=== PATIENT | male | born 1970 | race African-American/Black ===

== ENCOUNTER 2017-12-08 11:00 | Emergency (ER) | payer MEDICARE, MEDICAID, SELFPAY ==
[2017-12-08] VITALS (8 sets, daily range): BP systolic 117–151; BP diastolic 77–95; PULSE 65–89; RESP 14–18; TEMP 36.5; O2SAT 96–97; BMI 23.5
--- NOTE | 2017-12-08 11:16 | ED.DCSUM_ITS ---
- ER Visit Summary Date of Service: 12/08/17 Chief Complaint: I do not know why I am here History of Present Illness: The patient is a 47 M who presents for an unknown reason. He does not know what medications he takes. There is a caregiver with him whose not exactly sure why the patient is here either. He states that he needs his medications but cannot tell me what medications he is taking. He states that his primary care doctor is not authorized to write him his medications. States they called the [facility] and was told to come to the emergency room because they cannot see him until next week. So at this point is unclear why he is here what medications he needs are exactly what were supposed to be due other than the fact that he is here. I attempted to use [employer]. However I can only basically see a few notes and none of them are psychiatric in nature. I can see from his primary care physician notes that he has recently moved to [place]. 3 months ago was hospitalized at [facility]. Apparently he was receiving his medications off of prescriptions that were written there and some from his primary care doctor here in [place]. He was supposed to be seen next week by psychiatry at [facility]. Caregiver states he has not had his Haldol shot for over a month. He also reports being out of his clozapine. Reportedly the patient has had violence in the past due to paranoid schizophrenia. It is reported to me that [place] here in town where he is living is concerned that he is becoming agitated and is worried he is going to become violent. Physical Examination: Afebrile vital signs are stable Gen: Well-nourished well-developed Head: Normocephalic atraumatic Eyes: Perrl EOMI ENT: TMs clear no rhinorrhea moist mucous membranes Neck: Supple no lymphadenopathy no JVD nontender CVS: Regular rate rhythm no murmurs normal S1-S2 Respiratory: No distress clear to auscultation bilaterally chest nontender Abdomen: Soft nontender nondistended normal bowel sounds no masses Back: Nontender Extremity: Nontender no edema Skin: Normal color no rash Neuro: alert orientated ?3 CN II-XII intact normal strength sensation reflexes gait cerebellar Psych: Patient has nonlinear thinking. He is hyper alert. He appears internally stimulated. Test Results: Valproic acid level was 12. Alcohol negative. As directed 8 was positive for methamphetamine/MDMA. CMP normal. CBC normal. Urinalysis normal. Emergency Department Course and Treatment: Patient received a dose of Haldol here in the department. He is cleared for crisis. The patient has been up wandering the room he is directable though still with nonlinear thinking. Crisis is here to help evaluate the patient to make an appropriate disposition Impression: 1. Acute decompensated paranoid schizophrenia This note was generated with [employer] dictation software. It may contain incorrect words, spelling, and punctuation that were not noted in review of the chart prior to signing ED Disposition - Plan for ED Patient: Chief Complaint: Med Refill Referrals: Catrachito Arriaga MD [Primary Care Provider] -
--- NOTE | 2017-12-08 11:36 | NURSING ---
CALLED [facility] FOR A MED LIST. [phone]
[2017-12-08] MEDS: Haloperidol Lactate 5 MG/ML Vial 10 MG IM (11:41)
[2017-12-08 11:55] LABS: Absolute Lymphocyte Count 1.96 X10^3/ul (0.83-4.51); Absolute Neutrophil Count 5.5 X10^3/uL (2.0-7.7); Basophil# 0.01 X10^3/uL; Basophil% 0.1 % (0-1); Eosinophil# 0.08 X10^3/uL; Hematocrit 43.7 % (40-54); Hemoglobin 14.8 g/dl (13.0-16.5); Lymphocyte # 1.96 X10^3/ul (4.0); Lymphocyte % 24.1 % (19-41); Mean Corp Hgb Conc 33.9 g/gl (32-36); Mean Corpuscular Hgb 31.4 pg (27.0-32.0); Mean Corpuscular Volume 92.8 fL (80-94); Mean Platelet Vol. 12.1 fl (6.2-12.0); Monocyte# 0.61 X10^3/uL; Monocyte% 7.5 % (0-10); Neutrophil # 5.45 X10^3/uL (2.7-7.7); Neutrophil % 67.2 % (47-70); POSITIVE COUNT NO; POSITIVE DIFFERENTIAL NO; POSITIVE MORPHOLOGY NO; Platelet Count 190 K/mm3 (150-450); RBC Distribution Width CV 14.1 % (11.6-14.6); RBC Distribution Width SD 48.1 fl (35.1-43.9); Red Blood Count 4.71 M/mm3 (4.6-6.2); White Blood Count 8.1 K/mm3 (4.4-11.0)
--- NOTE | 2017-12-08 12:04 | NURSING ---
CALLED [facility] TO LEAVE A MESSAGE THAT WE HAD NOT RECEIVED A MED LIST. THEY ARE CLOSED FOR LUNCH AT NOON
[2017-12-08 12:13] LABS: ALB/GLOB Ratio 0.9 RATIO (0.9-2.4); AST(SGOT) 23 U/L (15-37); Alanine Aminotransfer ALT/SGPT 20 U/L (16-61); Alkaline Phosphatase 51 U/L (45-117); Anion Gap 8 (5-15); BUN 16 mg/dL (7-18); BUN/Creat Ratio 14.4 RATIO (10-20); Calcium,Total 8.9 mg/dL (8.5-10.1); Chloride 108 mmol/L (98-107); Creatinine, Serum 1.11 mg/dL (0.70-1.30); EST Glomerular Filtration Rate 76 mL/min (>60); Est Glom Filt Rate - Afr Amer 92 mL/min (>60); Estimated Creatinine Clearance 97.71 ml/min; Globulin 4.5 g/dL (2.2-4.2); Glucose 105 mg/dL (74-106); Protein, Total 8.5 g/dL (6.4-8.2); Sodium Level 142 mmol/L (136-145)
[2017-12-08 12:58] LABS: Alcohol, Blood (Medical)-Serum < 3.0 mg/dL
[2017-12-08 13:07] LABS: Red Blood Cells-Urine 0 SEEN /hpf (0-5); Squamous Epithelial Cells - UA 0 SEEN /hpf (0-5)
[2017-12-08 13:23] LABS: Color, Urine Yellow (Yellow); Glucose, Dipstick Normal (Normal); Ketone-Dipstick 50 mg/dl (Negative); Leukocyte Esterase-Dipstick 25 /ul (Negative); Nitrite-Dipstick Negative (Negative); Occult Blood-Urine 10 /ul (Negative); Protein-Dipstick 30 mg/dl (Negative); Specific Gravity, Urine 1.025 (1.002-1.030); Urine Clarity Clear (Clear); Urine Urobilinogen 4 mg/dl (Normal)
[2017-12-08 13:24] LABS: Urine Bilirubin Dipstick 1 mg/dL (Negative)
[2017-12-08 13:28] LABS: Bacteria RARE /hpf (None Seen); Mucous, Urine 2+ /hpf (<or=2+); White Blood Cells 0-5 SEEN /hpf (0-5)
[2017-12-08 13:42] LABS: Amphetamine Urine VISTA NEGATIVE (<1000 ng/mL); Barbiturate Urine VISTA NEGATIVE (< 200 ng/mL); Benzodiazepine Urine VISTA NEGATIVE (< 200 ng/mL); Cocaine Urine VISTA NEGATIVE (< 300 ng/mL); Ecstacy Urine VISTA POSITIVE (< 500 ng/mL); Methadone Urine VISTA NEGATIVE (< 300 ng/mL); PCP Urine VISTA NEGATIVE (< 25 ng/mL); THC Urine VISTA NEGATIVE (< 50 ng/mL); Vista UDS pH Range 5
[2017-12-08 13:48] LABS: Valproic Acid (Depakene) Level 12 ug/mL (50-100)
--- NOTE | 2017-12-08 14:24 | NURSING ---
EWELINA, [facility], AWARE
--- NOTE | 2017-12-08 15:53 | NURSING ---
FACILITY STAFF THAT WAS PRESENT WITH THE PATIENT RETURN TO THE FACILITY. PATIENT WAS TOLD BY STAFF THAT HE WOULD RETURN. FACILITY CALLED BACK INTO THE DEPARTMENT TO GET AN UPDATE ABOUT THE PATIENT. [facility] WAS INFROMED FOR PATIENT'S CURRENT STATUS AND ASKED WHY FACILITY STAFF MEMBER HAD NOT RETURNED. SHE STATED THE STAFF WAS OFF DUTY. PT WAS INFORMED THAT FACILITY STAFF THAT PROMISED TO RETURN WOULD NOT BE BACK AND THAT WE WOULD HAVE TO CALL [facility] FOR TRANSPORT BACK TO FACILITY.
[2017-12-08] MEDS: Haloperidol Lactate 5 MG/ML Vial 20 MG IM (17:01)
[2017-12-08] MEDS: DiphenhydrAMINE 50 MG/ML Syringe 25 MG IM (17:01)
--- NOTE | 2017-12-08 21:07 | NURSING ---
ACCEPTING AT [facility] BUT NOT ALLOWED TO CALL REPORT UNTIL 6:30AM AND CANNOT SET UP TRANSPORT UNTIL AFTER 8:30AM
[2017-12-09] VITALS (13 sets, daily range): BP systolic 128–135; BP diastolic 90–98; PULSE 70–78; RESP 12–18; TEMP 36.5; O2SAT 97–100
--- NOTE | 2017-12-09 09:54 | ED.RN ---
[facility] WILL BE COMING FOR PATIENT BETWEEN 4:30-5:00
== END 2017-12-09 17:55 ==
PROVIDERS: Emergency Provider Emergency Medicine; Family Provider Family Medicine
DX: F20.0 Paranoid schizophrenia (principal); I10 Essential (primary) hypertension; Z72.0 Tobacco use; Z79.899 Other long term (current) drug therapy
CPT/HCPCS: 36415; 80053; 80164; 80307; 80320; 81001; 85025; 96372; 99284; G0480

== ENCOUNTER 2018-03-26 15:21 | Emergency (ER) | payer MEDICARE, MEDICAID, SELFPAY ==
[2018-03-26 15:24] VITALS: BP 139/90; PULSE 89; RESP 16; TEMP 36.7; O2SAT 98; BMI 24.3
--- NOTE | 2018-03-26 15:52 | ED.VISSUMM ---
- ER Visit Summary Date of Service: 03/26/18 Chief Complaint: Wants psychiatric medication changed History of Present Illness: The patient is a 47 M presenting stating that he does not like the way his psychiatric medications make him feel. He states they make him feel high. He states he feels suicidal. He is currently staying in a facility. He has been there for the past month. He is from [facility]. He has not been able to contact his psychiatrist. He believes he is god and the devil. He is taking clozapine, Depakote, trazodone. Physical Examination: Vitals are stable. Patient is afebrile. Alert no acute distress. HEENT exam is unremarkable. Neck is supple. Lungs are clear and equal bilaterally. Heart is regular rate and rhythm. Abdomen is soft nontender nondistended. Extremities are unremarkable. Skin is warm and dry. No focal neurologic deficit. Agitated,suicidal ideation Remainder of exam is unremarkable. Emergency Department Course and Treatment: CBC, chemistries unremarkable. Tox and alcohol are negative. Depakote level is 74. Discussed with the counseling center for evaluation. Disposition: Per counseling center Impression: Suicidal ideation, history of schizophrenia This note was generated with [employer] dictation software. It may contain incorrect words, spelling, and punctuation that were not noted in review of the chart prior to signing ED Disposition - Plan for ED Patient: Chief Complaint: Mental Status Change Referrals: Nicole Lara,Out of [Primary Care Provider] -
--- NOTE | 2018-03-26 16:14 | ED.RN ---
after triage pt noted to physician that he changed his mind and is feeling suicidal. Suicide precautions initiated, sitter in place.
[2018-03-26 16:32] LABS: Amphetamine Urine VISTA NEGATIVE (<1000 ng/mL); Barbiturate Urine VISTA NEGATIVE (< 200 ng/mL); Benzodiazepine Urine VISTA NEGATIVE (< 200 ng/mL); Cocaine Urine VISTA NEGATIVE (< 300 ng/mL); Ecstacy Urine VISTA NEGATIVE (< 500 ng/mL); Methadone Urine VISTA NEGATIVE (< 300 ng/mL); PCP Urine VISTA NEGATIVE (< 25 ng/mL); THC Urine VISTA NEGATIVE (< 50 ng/mL); Vista UDS pH Range 5
[2018-03-26 16:32] LABS: Absolute Lymphocyte Count 1.57 X10^3/ul (0.83-4.51); Basophil# 0.01 X10^3/uL; Basophil% 0.2 % (0-1); Eosinophil# 0.14 X10^3/uL; Eosinophils% 2.7 % (0-5); Hematocrit 43.8 % (40-54); Hemoglobin 14.6 g/dl (13.0-16.5); Lymphocyte # 1.57 X10^3/ul (4.0); Lymphocyte % 30.6 % (19-41); Mean Corp Hgb Conc 33.3 g/gl (32-36); Mean Corpuscular Hgb 31.4 pg (27.0-32.0); Mean Corpuscular Volume 94.2 fL (80-94); Mean Platelet Vol. 12.5 fl (6.2-12.0); Monocyte% 7.8 % (0-10); Neutrophil % 58.5 % (47-70); Platelet Count 160 K/mm3 (150-450); RBC Distribution Width CV 13.6 % (11.6-14.6); RBC Distribution Width SD 46.6 fl (35.1-43.9); Red Blood Count 4.65 M/mm3 (4.6-6.2); White Blood Count 5.1 K/mm3 (4.4-11.0)
[2018-03-26 16:33] LABS: POSITIVE COUNT NO; POSITIVE DIFFERENTIAL NO; POSITIVE MORPHOLOGY NO
[2018-03-26 16:36] LABS: Anion Gap 5 (5-15); BUN 16 mg/dL (7-18); BUN/Creat Ratio 17.2 RATIO (10-20); Calcium,Total 8.2 mg/dL (8.5-10.1); Chloride 108 mmol/L (98-107); Creatinine, Serum 0.93 mg/dL (0.70-1.30); EST Glomerular Filtration Rate 93 mL/min (>60); Est Glom Filt Rate - Afr Amer 113 mL/min (>60); Estimated Creatinine Clearance 116.62 ml/min; Glucose 97 mg/dL (74-106); Potassium 3.8 mmol/L (3.5-5.1); Sodium Level 142 mmol/L (136-145)
[2018-03-26 17:13] LABS: Alcohol, Blood (Medical)-Serum < 3.0 mg/dL
[2018-03-26 17:22] LABS: Valproic Acid (Depakene) Level 74 ug/mL (50-100)
--- NOTE | 2018-03-26 17:41 | NURSING ---
[facility]ED [facility]. MEDICALLY CLEARED
--- NOTE | 2018-03-26 17:50 | NURSING ---
[facility]. WILL BE HERE IN 45 MIN
[2018-03-26 19:00] VITALS: RESP 18
--- NOTE | 2018-03-26 19:13 | ED.RN ---
[facility] AT [facility]
[2018-03-26 20:00] VITALS: BP 126/111; PULSE 83; RESP 18; O2SAT 98
[2018-03-26 21:00] VITALS: RESP 16
[2018-03-26] MEDS: Benztropine 2 MG Tablet 1 MG PO (21:11)
[2018-03-26] MEDS: traZODone 50 MG Tablet PO (21:11)
[2018-03-26] MEDS: Metoprolol Tartrate 50 MG Tablet PO (21:12)
[2018-03-26] MEDS: Divalproex (ER) 500 MG Tablet 1000 MG PO (21:12)
[2018-03-26 22:00] VITALS: RESP 16
--- NOTE | 2018-03-26 22:19 | EKG12_ITS ---
Test Reason : MED CLEARANCE Blood Pressure : / mmHG Vent. Rate : 084 BPM Atrial Rate : 084 BPM P-R Int : 182 ms QRS Dur : 082 ms QT Int : 390 ms P-R-T Axes : 065 -17 026 degrees QTc Int : 460 ms Normal sinus rhythm Minimal voltage criteria for LVH, may be normal variant Borderline ECG Confirmed by ALYSE REY, BEKAH ([id number]), video effects editor JULY MAHONEY ([id number]) on 03/30/2018 1:38:21 PM Referred By: OUT DOCTOR Confirmed By:BEKAH CULLEN MD
[2018-03-26 22:52] LABS: AST(SGOT) 17 U/L (15-37); Alanine Aminotransfer ALT/SGPT 27 U/L (16-61); Albumin, Serum 3.6 g/dL (3.2-5.0); Alkaline Phosphatase 51 U/L (45-117); Bilirubin, Direct 0.06 mg/dL (0.00-0.30); Globulin 4.3 g/dL (2.2-4.2); Protein, Total 7.9 g/dL (6.4-8.2)
[2018-03-26 23:00] VITALS: BP 131/81; PULSE 84; RESP 16; O2SAT 98
[2018-03-26 23:32] LABS: Color, Urine Yellow (Yellow); Glucose, Dipstick Normal (Normal); Ketone-Dipstick 5 mg/dl (Negative); Leukocyte Esterase-Dipstick 25 /ul (Negative); Nitrite-Dipstick Negative (Negative); Occult Blood-Urine Negative /ul (Negative); Protein-Dipstick 15 mg/dl (Negative); Urine Clarity Clear (Clear); Urine Urobilinogen 4 mg/dl (Normal)
[2018-03-26 23:34] LABS: Urine Bilirubin Dipstick 1 mg/dL (Negative)
[2018-03-27] VITALS (7 sets, daily range): BP systolic 120; BP diastolic 91; PULSE 68; RESP 14–18; O2SAT 98
== END 2018-03-27 08:22 ==
PROVIDERS: Emergency Provider Emergency Medicine; Family Provider Family Medicine; PCP Family Medicine
DX: R45.851 Suicidal ideations (principal); F20.9 Schizophrenia, unspecified
CPT/HCPCS: 80048; 80076; 80164; 80307; 80320; 81002; 85025; 93005; 99285; G0480

== ENCOUNTER 2018-04-18 01:15 | Emergency (ER) | payer MEDICARE, MEDICAID, SELFPAY ==
[2018-04-18 01:16] VITALS: BP 127/91; PULSE 90; RESP 16; TEMP 36.6; O2SAT 100; BMI 23.6
--- NOTE | 2018-04-18 02:04 | ED.VISSUMM ---
- ER Visit Summary Date of Service: 04/18/18 Chief Complaint: [] Headache History of Present Illness: The patient is a 47 M she has stated over the last 3 hours he has had a gradual onset continuous frontal headache. It is mild in nature. No home treatment. He stated he lives at a assisted and needs a prescription to take any pain medicines. He stated he has not taken his psychiatric medicines today. He wants to stop them because they give him headaches. Denies any other symptoms Physical Examination: [] Vital signs reviewed General: Well-nourished well-developed Head: Normocephalic atraumatic Eyes: Pupils equal round and reactive to light extraocular movements intact ENT: TMs clear no hemotympanum no trauma Neck: Nontender full range of motion Cardiovascular: Regular rate rhythm no murmurs normal S1-S2 Respiratory: No distress clear to auscultation bilaterally chest nontender Abdomen: Soft nontender nondistended normal bowel sounds no masses Back: Nontender no CVA tenderness Extremities: Nontender active range of motion ?4 extremities no trauma Skin: Normal color no trauma Neuro alert oriented cranial nerves II through XII intact normal strength sensation reflexes Test Results: [] Emergency Department Course and Treatment: [] Patient given a dose of ibuprofen. Given a prescription for this. I do not feel he has an acute emergent cause of his headache. It could be related to stopping his medications. He is instructed to take his medications daily and follow-up with his psychiatry doctor to stop them. He states he will do this. Follow-up as an outpatient. Treatment Plan: [] Disposition: [] Impression: [] Headache This note was generated with [employer] dictation software. It may contain incorrect words, spelling, and punctuation that were not noted in review of the chart prior to signing ED Disposition - Plan for ED Patient: Chief Complaint: Headache Referrals: Catrachito Cristina MD [Primary Care Provider] -
--- NOTE | 2018-04-18 02:05 | ED.DEP ---
ED Disposition - Plan for ED Patient: Disposition: Home or Assisted Living Chief Complaint: Headache Instructions: ED Headache Tension Prescriptions: Ibuprofen 800 mg PO TID 7 Days #21 tab Referrals: Catrachito Cristina MD [Primary Care Provider] -
[2018-04-18] MEDS: Ibuprofen 400 MG Tablet 800 MG PO (02:21)
[2018-04-18 02:44] VITALS: RESP 18
== END 2018-04-18 02:44 | disposition home or self-care (01) ==
PROVIDERS: Emergency Provider Emergency Medicine; Family Provider Family Medicine; PCP Family Medicine
DX: R51 Headache (principal); Z72.0 Tobacco use

== ENCOUNTER 2018-04-18 20:29 | Emergency (ER) | payer MEDICARE, MEDICAID, SELFPAY ==
[2018-04-18 01:16] VITALS: BMI 23.6
[2018-04-18 20:29] VITALS: BP 136/84; PULSE 80; RESP 18; TEMP 36.4; O2SAT 98; BMI 24.0
--- NOTE | 2018-04-18 20:49 | ED.DCSUM_ITS ---
- ER Visit Summary Date of Service: 04/18/18 Chief Complaint: Headache History of Present Illness: The patient is a 47 M with history of schizophrenia, seizure disorder, and hypertension. He was seen last night for headache and given ibuprofen. Patient reportedly did not make it back to his senior care and states that his headache is returned. He is requesting another dose of ibuprofen. He also states that his tongue has been hurting him and thinks it may be related to smoking. He has not had fever or chills. He has not had significant URI symptoms. Denies recent head injury. Physical Examination: Vital signs unremarkable. Patient sitting upright in bed no acute distress. He is alert and talkative. Head and neck examination reveals TMs to be clear. He has moist mucous membranes. No intraoral lesions are noted. No sinus tenderness. Heart is regular rate and rhythm. Lungs sounds clear. Neuro exam is unremarkable. Test Results: [] Emergency Department Course and Treatment: Patient be given a dose of ibuprofen for his headache. He was already given a prescription for the same this morning. He is encouraged to follow-up with a paste thinner or a dentist to be checked for oral cancer and we discussed smoking cessation. Treatment Plan: [] Disposition: Discharge Impression: Cephalgia This note was generated with [employer] dictation software. It may contain incorrect words, spelling, and punctuation that were not noted in review of the chart prior to signing ED Disposition - Plan for ED Patient: Chief Complaint: Headache Referrals: Catrachito Cristina MD [Primary Care Provider] -
--- NOTE | 2018-04-18 20:49 | ED.DEP ---
ED Disposition - Plan for ED Patient: Disposition: Home or Assisted Living Chief Complaint: Headache Instructions: ED Cephalgia Unspecified Referrals: Catrachito Cristina MD [Primary Care Provider] - Additional Instructions: Follow-up with a dentist or a hat band attacher to be checked for oral cancer as discussed.
[2018-04-18] MEDS: Ibuprofen 400 MG Tablet 800 MG PO (20:59)
[2018-04-18 21:09] VITALS: RESP 18
--- OUTSIDE RECORDS SUMMARY | 2018-05-31 17:12 | XMS RPT_ITS ---
:1970 Author Organization OHIP Care Team Providers Name Role Phone Carlos Eduardo Jade Attending Unavailable Catrachito Cristina Primary Care Unavailable Jonnie, Catrachito Primary Care Unavailable Patty Turner Attending Unavailable GUANAKITO BLUM Referring Unavailable Bursley, Catrachito Primary Care Unavailable Christiano Quinones Attending Unavailable Bursley, Catrachito Primary Care Unavailable Magy Sandoval Attending Unavailable Bursley, Catrachito Primary Care Unavailable Darío Lundy Attending Unavailable LAURA CRISTINA) Attending Unavailable LAURA CRISTINA) Referring Unavailable LAURA CRISTINA) Referring Unavailable LAURA CRISTINA) Attending Unavailable JORGE OLIVIER Referring Unavailable LAURA CRISTINA) Referring Unavailable LANDEN SANTOS MD Admitting Unavailable LANDEN SANTOS MD Attending Unavailable CALVIN BAIG JR, MD Consulting Unavailable LANDEN SANTOS MD Consulting Unavailable PROBLEMS PROBLEMS DATE TYPE CONDITION / CODE ATTENDING STATUS SOURCE 03/17/2018 Active Essential (primary) NA Active [place] hypertension / Clinic Main I10(ICD-10) [place] Rep[facility] 10/07/2017 Active Schizoaffective NA Active [place] disorder, bipolar Clinic Main type / F25.0(ICD-10) [place] Repository PROCEDURES PROCEDURES No Procedure Records FoundRESULTS RESULTS 12 LEAD ELECTROCARDIOGRAM Observed: 04/26/2018 Status: F Source: JAZZY 2:10 PM [facility] Cardiovascular Services [address] [place] [address] 12 Lead EKG 04/21/18 1144 MR#: [id number] Acct: [id number] Name: AGUSTIN ARROYO Rep #: [id number] : 1970 47 From: Naseem Block MD Attending Dr: Status: DEP ER Ordering Dr: Carlos Eduardo Mohan MD Date: 04/21/18 Location: ED Sex: M AA Admitted: Test Reason : MHC Blood Pressure : / mmHG Vent. Rate : 081 BPM Atrial Rate : 081 BPM P-R Int : 134 ms QRS Dur : 080 ms QT Int : 390 ms P-R-T Axes : 264 032 026 degrees QTc Int : 453 ms Unusual P axis and short FL, probable junctional tachycardia Abnormal ECG Confirmed by NASEEM BLOCK MD ([id number]), graphic editor JULY MAHONEY ([id number]) on 04/26/2018 2:10:36 PM Referred By: SHAD Confirmed By:NASEEM BLOCK MD 04/26/18 1410 Date Naseem Block MD CC: Catrachito Cristina MD; Carlos Eduardo Mohan MD; Darío Lundy MD Signed EMERGENCY DEPARTMENT Observed: 04/20/2018 Status: F Source: JAZZY SUMMARY 11:12 PM [facility] REPOSITORY [facility] Medical Records Department [address] [place] [address] Emergency Department Summary 04/20/18 1703 MR#: [id number] Acct: [id number] Name: AGUSTIN ARROYO Rep #: [id number] : 1970 47 From: Darío Lundy MD PCP: Catrachito Cristina MD Status: REG ER - ER Visit Summary Date of Service: 04/20/18 Chief Complaint: Aggressive behavior History of Present Illness: The patient is a [address] Maya and the counseling center. Staff from [facility] reports that that say the patient has threatened people there. Patient reports that he told someone if they did not give me a cigar I was going to kill them. However he reports that he was joking around did not mean this. He denies any suicidal homicidal ideation. Does report that he has auditory hallucinations that are chronic and unchanged. These are not command hallucinations. He states that he is felt like his mind has been racing since yesterday when he missed his medications. However he took them today. Patient was hospitalized at [facility] and released April 12. He was here 3 days ago. Physical Examination: Vitals: Stable. Afebrile. General: Well-nourished and well-developed. Head: Normocephalic atraumatic. Neck: Supple, no lymphadenopathy. No JVD. Nontender. Cardiovascular: Regular rate and rhythm. No murmurs. Respiratory: No respiratory distress. Clear to auscultation bilaterally. Abdominal: Soft, nontender, nondistended, normal bowel sounds. No guarding, rebound, or peritoneal signs. Back: Nontender. Extremities: Nontender, no edema. Skin: Normal color, no rash. Neurologic: Alert and oriented 3. Cranial nerves II through XII are intact. Normal strength and sensation. Mental status exam: Patient appears their stated age. Good posture and grooming. Good eye contact. Normal rate, volume, and latency of speech. No suicidal or homicidal ideation. Flow of thought is logical. Insight and judgment is poor. Flat affect. Test Results: CBC is normal. Chem-7 is more for chloride 110. Tox screen is negative. Blood alcohol level is 0. Depakote level is 51. Emergency Department Course and Treatment: Patient complained of back pain was given dose of ibuprofen p.o. He is resting comfortably while here. Treatment Plan: The patient was seen by the counseling center and they are in the process of getting him placed in a psychiatric facility. Disposition: Pending Impression: 1. Schizoaffective disorder. 2. Aggressive behavior. This note was generated with [employer] software. It may contain incorrect words, spelling, and punctuation that were not noted in review of the chart prior to signing ED Disposition - Plan for ED Patient: Chief Complaint: Mental Health Referrals: Catrachito Cristina MD [Primary Care Provider] - What to do if you have Problems For any increased pain, shortness of breath, bleeding, nausea or vomiting, chest pain, or any unexpected problems, contact your Primary Care Provider. Call [facility] ([phone]) or report to the closest Emergency Room. Call 911 if necessary. 04/20/18 2312 <Electronically signed by Darío Lundy MD> Date Darío Lundy MD Cosigner Signature (If Indicated): Date CC: Catrachito Cristina MD URINE DRUG SCREEN Collected: 04/20/2018 Status: F Source: JAZZY (VISTA) 5:00 PM [facility] REPOSITORY TYPE CODE TESTS RESULT OUT OF RANGE REFERENCE UNITS LAB L505.0075 TO BE Normal CONFIRMED Result Comment: CONFIRMATORY TESTING FOR ALL POSITIVE URINE DRUG SCREEN RESULTS WILL ONLY BE SENT OUT UPON PHYSICIAN ORDER. VISTA Urine Drug Screen methods provide only preliminary analytical test results. A more specific alternate chemical method must be used in order to obtain a confirmed analytical result. Gas chromatography/mass spectrometery (GC/MS) is the preferred confirmatory method. Clinical consideration and professional judgement should be applied to any drug of abuse test result, particularly when preliminary positive results are used. URINE TCA TESTING MUST BE ORDERED SEPARATELY. USE TEST MNEMONIC: [facility] LAB L505.5005 VISTA UDS PH 6 Normal LAB L505.5015 <1000 ng/mL AMPHETAMINES Normal NEGATIVE LAB L505.5025 < 200 ng/mL BARBITIURATES Normal NEGATIVE LAB L505.5035 < 200 ng/mL BENZODIAZIPINE Normal NEGATIVE LAB L505.5045 < 300 ng/mL COCAINE Normal NEGATIVE LAB L505.5055 < 500 ng/mL ECSTACY Normal NEGATIVE LAB L505.5065 < 300 ng/mL METHADONE Normal NEGATIVE LAB L505.5075 < 300 ng/mL OPIATES Normal NEGATIVE LAB L505.5085 < 25 ng/mL PCP Normal NEGATIVE LAB L505.5095 < 50 ng/mL THC Normal NEGATIVE Performed By: #### L505.5000 #### [facility] [place], [address] CBC W/DIFF, AUTOMATED Collected: 04/20/2018 Status: F Source: SARVER 4:45 PM [facility] REPOSITORY TYPE CODE TESTS RESULT OUT OF RANGE REFERENCE UNITS LAB L100.1000 4.4-11.0 K/mm3 Normal WBC 6.7 LAB L100.1200 4.6-6.2 M/mm3 Normal RBC 4.82 LAB L100.1300 13.0-16.5 g/dl Normal HGB 15.0 LAB L100.1400 40-54 % Normal HCT 45.0 LAB L100.1500 80-94 fL Normal MCV 93.4 LAB L100.1600 27.0-32.0 pg Normal MCH 31.1 LAB L100.1700 32-36 g/gl Normal MCHC 33.3 LAB L100.1810 11.6-14.6 % Normal RDW CV 13.8 LAB L100.1820 35.1-43.9 fl High RDW SD 45.7 LAB L100.1900 150-450 K/mm3 Normal PLT 178 LAB L100.2000 6.2-12.0 fl High MPV 12.9 LAB L100.2100 47-70 % Normal NEUT% 54.4 LAB L100.2200 19-41 % Normal LY% 34.9 LAB L100.2300 0-10 % Normal MONO% 8.3 LAB L100.2400 0-5 % Normal EO% 2.0 LAB L100.2500 0-1 % Normal BASO% 0.2 LAB L100.2550 0.0-0.9 % Normal IM GRAN % 0.200 Result Comment: IG% - Immature Granulocytes (promyelocytes, myelocytes and metamyelocytes) > 1% indicates that a LEFT SHIFT is Present. LAB L100.2620 2.0-7.7 X10 3/uL Normal Absolute Neut 3.6 LAB L100.2720 0.83-4.51 X10 3/ul Normal Absolute Lymph 2.32 Performed By: #### L100.0100 #### [facility] [address] [place], [place], [id number] BASIC METABOLIC Collected: 04/20/2018 Status: F Source: JAZZY PROFILE (BMP) 4:45 PM [facility] REPOSITORY TYPE CODE TESTS RESULT OUT OF RANGE REFERENCE UNITS LAB L501.0100 74-106 mg/dL Normal GLU 92 Result Comment: Please note revised GLUCOSE reference range effective 2017. LAB L501.1000 7-18 mg/dL Normal BUN 14 LAB L501.1100 0.70-1.30 mg/dL Normal CREAT,SERUM 1.08 Result Comment: The validity of the calculated GFR AND GFRAA in patients over 70 years has not been determined. Clinical correlation is essential. LAB L501.1110 >60 mL/min Normal EST GFR 78 Result Comment: Non- GFR Calc LAB L501.1115 >60 mL/min Normal EST GFR - AA 95 Result Comment: GFR Calc LAB L501.1255 ml/min Normal Estimated CRCL 100.42 LAB L501.1300 10-20 RATIO BUN/CRE Normal 13.0 LAB L501.2200 8.5-10 mg/dL .1 CA Normal 8.6 LAB L501.5300 136-14 mmol/L 5 NA Normal 143 LAB L501.5600 3.5-5. mmol/L 1 K Normal 3.9 LAB L501.5900 98-107 mmol/L High CL 110 LAB L501.6100 21.0-3 mmol/L 2.0 CO2 Normal 28.0 LAB L501.6200 5-15 GAP Normal 5 Performed By: #### L500.2500 #### [facility] [address] [place], [address] ALCOHOL, BLOOD Collected: 04/20/2018 Status: F Source: JAZZY (MEDICAL)-SERUM 4:45 PM [facility] REPOSITORY TYPE CODE TESTS RESULT OUT OF RANGE REFERENCE UNITS LAB L501.9100 mg/dL Normal SERUM < 3.0 ETOH Result Comment: The serum:whole blood ethanol ratio is approximately 1.14 and varies slightly with hematocrit. Medical Alcohol reference interval and critical value in non-tolerant individuals; 50 - 100 Impairment 100 Intoxication 100 - 250 Severe Poisoning 250 - 400 Deep/possible fatal coma Performed By: #### L501.9100 #### [facility] [address] [place], [address] VALPROIC ACID Collected: 04/20/2018 Status: F Source: JAZZY (BARBARAAKENCruzito) LEVEL 4:45 PM [facility] REPOSITORY TYPE CODE TESTS RESULT OUT OF RANGE REFERENCE UNITS LAB L501.8100 50-100 ug/mL Normal VALPROIC ACID 51 Performed By: #### L501.8100 #### [facility] [address] [place], [address] LIVER PROFILE Collected: 04/20/2018 Status: F Source: JAZZY 4:45 PM [facility] REPOSITORY Order Comment: Order Date: 04/21/18 TYPE CODE TESTS RESULT OUT OF RANGE REFERENCE UNITS LAB L501.1500 6.4-8.2 g/dL Normal T PROT 7.7 LAB L501.1800 3.2-5.0 g/dL Normal ALB 3.5 LAB L501.1950 2.2-4.2 g/dL Normal GLOB 4.2 LAB L501.4100 15-37 U/L Normal AST 20 LAB L501.4305 45-117 U/L Normal ALK P 45 LAB L501.4405 16-61 U/L Normal ALT 25 LAB L501.4600 0.20-1.00 mg/dL Normal T BILI 0.40 LAB L501.4700 0.00-0.30 mg/dL Normal D BILI 0.14 Performed By: #### L500.3400 #### [facility] [address] [place], [address] EMERGENCY DEPARTMENT Observed: 04/19/2018 Status: F Source: JAZZY SUMMARY 12:27 AM [facility] REPOSITORY [facility] Medical Records Department [address] [place] [address] Emergency Department Summary 04/18/188 MR#: [id number] Acct: [id number] Name: AGUSTIN ARROYO Rep #: [id number] : 1970 47 From: Magy Sandoval MD PCP: Catrachito Cristina MD Status: DEP ER - ER Visit Summary Date of Service: 04/18/18 Chief Complaint: Headache History of Present Illness: The patient is a 47 M with history of schizophrenia, seizure disorder, and hypertension. He was seen last night for headache and given ibuprofen. Patient reportedly did not make it back to his prison and states that his headache is returned. He is requesting another dose of ibuprofen. He also states that his tongue has been hurting him and thinks it may be related to smoking. He has not had fever or chills. He has not had significant URI symptoms. Denies recent head injury. Physical Examination: Vital signs unremarkable. Patient sitting upright in bed no acute distress. He is alert and talkative. Head and neck examination reveals TMs to be clear. He has moist mucous membranes. No intraoral lesions are noted. No sinus tenderness. Heart is regular rate and rhythm. Lungs sounds clear. Neuro exam is unremarkable. Test Results: [] Emergency Department Course and Treatment: Patient be given a dose of ibuprofen for his headache. He was already given a prescription for the same this morning. He is encouraged to follow-up with a chaser apprentice or a dentist to be checked for oral cancer and we discussed smoking cessation. Treatment Plan: [] Disposition: Discharge Impression: Cephalgia This note was generated with [employer] dictation software. It may contain incorrect words, spelling, and punctuation that were not noted in review of the chart prior to signing ED Disposition - Plan for ED Patient: Chief Complaint: Headache Referrals: Catrachito Cristina MD [Primary Care Provider] - What to do if you have Problems For any increased pain, shortness of breath, bleeding, nausea or vomiting, chest pain, or any unexpected problems, contact your Primary Care Provider. Call [facility] ([phone]) or report to the closest Emergency Room. Call 911 if necessary. 04/19/18 0027 <Electronically signed by Magy Sandoval MD> Date Magy Sandoval MD Cosigner Signature (If Indicated): Date CC: Catrachito Cristina MD DISCHARGE INSTRUCTION Observed: 04/18/2018 Status: F Source: JAZZY 8:50 PM [facility] REPOSITORY [facility] Medical Records Department [address] [place] [address] Discharge Instruction 04/18/182048 MR#: [id number] Acct: [id number] Name: AGUSTIN ARROYO Rep #: [id number] : 1970 47 From: Magy Sandoval MD PCP: Catrachito Cristina MD Status: PRE ER ED Disposition - Plan for ED Patient: Disposition: Home or Assisted Living Chief Complaint: Headache Instructions: ED Cephalgia Unspecified Referrals: Catrachito Cristina MD [Primary Care Provider] - Additional Instructions: Follow-up with a dentist or a chaser apprentice to be checked for oral cancer as discussed. What to do if you have Problems For any increased pain, shortness of breath, bleeding, nausea or vomiting, chest pain, or any unexpected problems, contact your Primary Care Provider. Call [facility] ([phone]) or report to the closest Emergency Room. Call 911 if necessary. 04/18/182049 <Electronically signed by Magy Sandoval MD> Date Magy Sandoval MD Cosigner Signature (If Indicated): Date CC: Catrachito Cristina MD EMERGENCY DEPARTMENT Observed: 04/18/2018 Status: F Source: JAZZY SUMMARY 7:04 AM [facility] REPOSITORY [facility] Medical Records Department [address] [place] [address] Emergency Department Summary 04/18/184 MR#: [id number] Acct: [id number] Name: AGUSTIN ARROYO Rep #: [id number] : 1970 47 From: Christiano Quinones MD PCP: Catrachito Cristina MD Status: DEP ER - ER Visit Summary Date of Service: 04/18/18 Chief Complaint: [] Headache History of Present Illness: The patient is a 47 M she has stated over the last 3 hours he has had a gradual onset continuous frontal headache. It is mild in nature. No home treatment. He stated he lives at a prison and needs a prescription to take any pain medicines. He stated he has not taken his psychiatric medicines today. He wants to stop them because they give him headaches. Denies any other symptoms Physical Examination: [] Vital signs reviewed General: Well-nourished well-developed Head: Normocephalic atraumatic Eyes: Pupils equal round and reactive to light extraocular movements intact ENT: TMs clear no hemotympanum no trauma Neck: Nontender full range of motion Cardiovascular: Regular rate rhythm no murmurs normal S1-S2 Respiratory: No distress clear to auscultation bilaterally chest nontender Abdomen: Soft nontender nondistended normal bowel sounds no masses Back: Nontender no CVA tenderness Extremities: Nontender active range of motion 4 extremities no trauma Skin: Normal color no trauma Neuro alert oriented cranial nerves II through XII intact normal strength sensation reflexes Test Results: [] Emergency Department Course and Treatment: [] Patient given a dose of ibuprofen. Given a prescription for this. I do not feel he has an acute emergent cause of his headache. It could be related to stopping his medications. He is instructed to take his medications daily and follow-up with his psychiatry doctor to stop them. He states he will do this. Follow-up as an outpatient. Treatment Plan: [] Disposition: [] Impression: [] Headache This note was generated with [employer] dictation software. It may contain incorrect words, spelling, and punctuation that were not noted in review of the chart prior to signing ED Disposition - Plan for ED Patient: Chief Complaint: Headache Referrals: Catrachito Cristina MD [Primary Care Provider] - What to do if you have Problems For any increased pain, shortness of breath, bleeding, nausea or vomiting, chest pain, or any unexpected problems, contact your Primary Care Provider. Call [facility] ([phone]) or report to the closest Emergency Room. Call 911 if necessary. 04/18/18 0704 <Electronically signed by Christiano Quinones MD> Date Christiano Quinonse MD Cosigner Signature (If Indicated): Date __ CC: Catrachito Cristina MD DISCHARGE INSTRUCTION Observed: 04/18/2018 Status: F Source: JAZZY 7:04 AM [facility] REPOSITORY [facility] Medical Records Department [address] [place] [address] Discharge Instruction 04/18/18 0205 MR#: [id number] Acct: [id number] Name: AGUSTIN ARROYO Rep #: [id number] : 1970 47 From: Christiano Quinones MD PCP: Catrachito Cristina MD Status: DEP ER ED Disposition - Plan for ED Patient: Disposition: Home or Assisted Living Chief Complaint: Headache Instructions: ED Headache Tension Prescriptions: Ibuprofen 800 mg PO TID 7 Days #21 tab Referrals: Catrachito Cristina MD [Primary Care Provider] - What to do if you have Problems For any increased pain, shortness of breath, bleeding, nausea or vomiting, chest pain, or any unexpected problems, contact your Primary Care Provider. Call [facility] ([phone]) or report to the closest Emergency Room. Call 911 if necessary. 04/18/18 0704 <Electronically signed by Christiano Quinones MD> Date Christiano Quinones MD Cosigner Signature (If Indicated): Date CC: Catrachito Cristina MD 12 LEAD ELECTROCARDIOGRAM Observed: 03/30/2018 Status: F Source: SARVER 1:38 PM [facility] Cardiovascular Services [address] [place] [address] 12 Lead EKG 03/26/18 2258 MR#: [id number] Acct: [id number] Name: AGUSTIN ARROYO Rep #: [id number] : 1970 47 From: Naseem Block MD Attending Dr: Status: DEP ER Ordering Dr: Patty Turner MD Date: 03/26/18 Location: ED Sex: M AA Admitted: Test Reason : MED CLEARANCE Blood Pressure : / mmHG Vent. Rate : 084 BPM Atrial Rate : 084 BPM P-R Int : 182 ms QRS Dur : 082 ms QT Int : 390 ms P-R-T Axes : 065 -17 026 degrees QTc Int : 460 ms Normal sinus rhythm Minimal voltage criteria for LVH, may be normal variant Borderline ECG Confirmed by NASEEM BLOCK MD ([id number]), graphic editor JULY MAHONEY ([id number]) on 03/30/2018 1:38:21 PM Referred By: OUT DOCTOR Confirmed By:NASEEM BLOCK MD 03/30/18 1338 Date aNseem Block MD CC: Patty Turner MD; Catrachito Cristina MD Signed EMERGENCY DEPARTMENT Observed: 03/26/2018 Status: F Source: SARVER SUMMARY 11:43 PM [facility] REPOSITORY [facility] Medical Records Department [address] [place] [place] [address] Emergency Department Summary 03/26/18 1552 MR#: [id number] Acct: [id number] Name: AGUSTIN ARROYO Rep #: [id number] : 1970 47 From: Patty Turner MD PCP: Catrachito Cristina MD Status: REG ER - ER Visit Summary Date of Service: 03/26/18 Chief Complaint: Wants psychiatric medication changed History of Present Illness: The patient is a 47 M presenting stating that he does not like the way his psychiatric medications make him feel. He states they make him feel high. He states he feels suicidal. He is currently staying in a facility. He has been there for the past month. He is from [facility]. He has not been able to contact his psychiatrist. He believes he is god and the devil. He is taking clozapine, Depakote, trazodone. Physical Examination: Vitals are stable. Patient is afebrile. Alert no acute distress. HEENT exam is unremarkable. Neck is supple. Lungs are clear and equal bilaterally. Heart is regular rate and rhythm. Abdomen is soft nontender nondistended. Extremities are unremarkable. Skin is warm and dry. No focal neurologic deficit. Agitated,suicidal ideation Remainder of exam is unremarkable. Emergency Department Course and Treatment: CBC, chemistries unremarkable. Tox and alcohol are negative. Depakote level is 74. Discussed with the counseling center for evaluation. Disposition: Per counseling center Impression: Suicidal ideation, history of schizophrenia This note was generated with [employer] dictation software. It may contain incorrect words, spelling, and punctuation that were not noted in review of the chart prior to signing ED Disposition - Plan for ED Patient: Chief Complaint: Mental Status Change Referrals: [facility] Doctor,Out of [Primary Care Provider] - What to do if you have Problems For any increased pain, shortness of breath, bleeding, nausea or vomiting, chest pain, or any unexpected problems, contact your Primary Care Provider. Call [facility] ([phone]) or report to the closest Emergency Room. Call 911 if necessary. 03/26/18 3479 <Electronically signed by Patty Turner MD> Date Patty Turner MD Cosigner Signature (If Indicated): Date CC: Catrachito Cristina MD CBC W/DIFF, AUTOMATED Collected: 03/26/2018 Status: F Source: JAZZY 4:20 PM [facility] REPOSITORY TYPE CODE TESTS RESULT OUT OF RANGE REFERENCE UNITS LAB L100.1000 4.4-11.0 K/mm3 Normal WBC 5.1 LAB L100.1200 4.6-6.2 M/mm3 Normal RBC 4.65 LAB L100.1300 13.0-16.5 g/dl Normal HGB 14.6 LAB L100.1400 40-54 % Normal HCT 43.8 LAB L100.1500 80-94 fL High MCV 94.2 LAB L100.1600 27.0-32.0 pg Normal MCH 31.4 LAB L100.1700 32-36 g/gl Normal MCHC 33.3 LAB L100.1810 11.6-14.6 % Normal RDW CV 13.6 LAB L100.1820 35.1-43.9 fl High RDW SD 46.6 LAB L100.1900 150-450 K/mm3 Normal PLT 160 LAB L100.2000 6.2-12.0 fl High MPV 12.5 LAB L100.2100 47-70 % Normal NEUT% 58.5 LAB L100.2200 19-41 % Normal LY% 30.6 LAB L100.2300 0-10 % Normal MONO% 7.8 LAB L100.2400 0-5 % Normal EO% 2.7 LAB L100.2500 0-1 % Normal BASO% 0.2 LAB L100.2550 0.0-0.9 % Normal IM GRAN % 0.200 Result Comment: IG% - Immature Granulocytes (promyelocytes, myelocytes and metamyelocytes) > 1% indicates that a LEFT SHIFT is Present. LAB L100.2620 2.0-7.7 X10 3/uL Normal Absolute Neut 3.0 LAB L100.2720 0.83-4.51 X10 3/ul Normal Absolute Lymph 1.57 Performed By: #### L100.0100 #### [facility] [address] [place], [address] BASIC METABOLIC Collected: 03/26/2018 Status: F Source: JAZZY PROFILE ([facility]) 4:20 PM [facility] REPOSITORY TYPE CODE TESTS RESULT OUT OF RANGE REFERENCE UNITS LAB L501.0100 74-106 mg/dL Normal GLU 97 Result Comment: Please note revised GLUCOSE reference range effective 2017. LAB L501.1000 7-18 mg/dL Normal BUN 16 LAB L501.1100 0.70-1.30 mg/dL Normal CREAT,SERUM 0.93 Result Comment: The validity of the calculated GFR AND GFRAA in patients over 70 years has not been determined. Clinical correlation is essential. LAB L501.1110 >60 mL/min Normal EST GFR 93 Result Comment: Non- GFR Calc LAB L501.1115 >60 mL/min Normal EST GFR - AA 113 Result Comment: GFR Calc LAB L501.1255 ml/min Normal Estimated CRCL 116.62 LAB L501.1300 10-20 RATIO BUN/CRE Normal 17.2 LAB L501.2200 8.5-10 mg/dL Low .1 CA 8.2 LAB L501.5300 136-14 mmol/L 5 NA Normal 142 LAB L501.5600 3.5-5. mmol/L 1 K Normal 3.8 LAB L501.5900 98-107 mmol/L High CL 108 LAB L501.6100 21.0-3 mmol/L 2.0 CO2 Normal 29.0 LAB L501.6200 5-15 GAP Normal 5 Performed By: #### L500.2500 #### [facility] [address]. [place], [place], [id number] ALCOHOL, BLOOD Collected: 03/26/2018 Status: F Source: SARVER (MEDICAL)-SERUM 4:20 PM [facility] REPOSITORY TYPE CODE TESTS RESULT OUT OF RANGE REFERENCE UNITS LAB L501.9100 mg/dL Normal SERUM < 3.0 ETOH Result Comment: The serum:whole blood ethanol ratio is approximately 1.14 and varies slightly with hematocrit. Medical Alcohol reference interval and critical value in non-tolerant individuals; 50 - 100 Impairment 100 Intoxication 100 - 250 Severe Poisoning 250 - 400 Deep/possible fatal coma Performed By: #### L501.9100 #### [facility] [address] [facility] [place], [place], [id number] VALPROIC ACID Collected: 03/26/2018 Status: F Source: JAZZY (DEPAKENE) LEVEL 4:20 PM [facility] REPOSITORY TYPE CODE TESTS RESULT OUT OF RANGE REFERENCE UNITS LAB L501.8100 50-100 ug/mL Normal VALPROIC ACID 74 Performed By: #### L501.8100 #### [facility] [address], [place], [id number] URINE DRUG SCREEN Collected: 03/26/2018 Status: F Source: JAZZY (VISTA) 4:10 PM [facility] REPOSITORY TYPE CODE TESTS RESULT OUT OF RANGE REFERENCE UNITS LAB L505.0075 TO BE Normal CONFIRMED Result Comment: CONFIRMATORY TESTING FOR ALL POSITIVE URINE DRUG SCREEN RESULTS WILL ONLY BE SENT OUT UPON PHYSICIAN ORDER. VISTA Urine Drug Screen methods provide only preliminary analytical test results. A more specific alternate chemical method must be used in order to obtain a confirmed analytical result. Gas chromatography/mass spectrometery (GC/MS) is the preferred confirmatory method. Clinical consideration and professional judgement should be applied to any drug of abuse test result, particularly when preliminary positive results are used. URINE TCA TESTING MUST BE ORDERED SEPARATELY. USE TEST MNEMONIC: [facility] LAB L505.5005 VISTA UDS PH 5 Normal LAB L505.5015 <1000 ng/mL AMPHETAMINES Normal NEGATIVE LAB L505.5025 < 200 ng/mL BARBITIURATES Normal NEGATIVE LAB L505.5035 < 200 ng/mL BENZODIAZIPINE Normal NEGATIVE LAB L505.5045 < 300 ng/mL COCAINE Normal NEGATIVE LAB L505.5055 < 500 ng/mL ECSTACY Normal NEGATIVE LAB L505.5065 < 300 ng/mL METHADONE Normal NEGATIVE LAB L505.5075 < 300 ng/mL OPIATES Normal NEGATIVE LAB L505.5085 < 25 ng/mL PCP Normal NEGATIVE LAB L505.5095 < 50 ng/mL THC Normal NEGATIVE Performed By: #### L505.5000 #### [facility] [address] [place] [address] Jennifer. [place], [place], [id number] LIVER PROFILE Collected: 03/26/2018 Status: F Source: JAZZY 4:10 PM [facility] REPOSITORY TYPE CODE TESTS RESULT OUT OF RANGE REFERENCE UNITS LAB L501.1500 6.4-8.2 g/dL Normal T PROT 7.9 LAB L501.1800 3.2-5.0 g/dL Normal ALB 3.6 LAB L501.1950 2.2-4.2 g/dL High GLOB 4.3 LAB L501.4100 15-37 U/L Normal AST 17 LAB L501.4305 45-117 U/L Normal ALK P 51 LAB L501.4405 16-61 U/L Normal ALT 27 LAB L501.4600 0.20-1.00 mg/dL Normal T BILI 0.30 LAB L501.4700 0.00-0.30 mg/dL Normal D BILI 0.06 Performed By: #### L500.3400 #### [facility] [address] [place], [place], [address] URINALYSIS, ROUTINE Collected: 03/26/2018 Status: F Source: JAZZY (DIPSTICK) 4:10 PM [facility] REPOSITORY Order Comment: Order Date: 03/26/18 How was Urine Obtained? CLEAN CATCH TYPE CODE TESTS RESULT OUT OF RANGE REFERENCE UNITS LAB L400.3000 Yellow COLOR Normal Yellow LAB L400.3050 Clear Normal CLARITY Clear LAB L400.3200 Normal mg/dl Normal GLUCOSE, UR Normal LAB L400.3300 Negative mg/dL High BILIRUBIN URINE 1 Result Comment: COLOR OF URINE MAY AFFECT DIPSTICK RESULTS. LAB L400.3400 Negative mg/dl High KETONE UR 5 LAB L400.3465 1.002-1.030 Normal SP.GR. DIPSTX 1.020 LAB L400.3550 5.0 - 8.0 pH Normal UR 6.0 LAB L400.3600 Negative mg/dl High PROT DIPSTX 15 LAB L400.3700 Normal mg/dl High UROBILI 4 LAB L400.3750 Negative Normal NITRITE UR Negative LAB L400.3780 Negative /ul Normal OCCULT Negative BLOOD-UR LAB L400.3800 Negative /ul High LEUK ESTERASE 25 Performed By: #### L400.2010 #### [facility] [address] [place], [address] CBC AND DIFFERENTIAL Collected: 03/23/2018 Status: F Source: PAWNEE 11:01 AM [facility] REPOSITORY TYPE CODE TESTS RESULT OUT OF REFERENCE UNITS RANGE LAB WBC 3.70-11.00 k/uL WBC 6.87 LAB RBC 4.20-6.00 m/uL RBC 4.61 LAB HGB 13.0-17.0 g/dL Hemoglobin 14.5 LAB HCT 39.0-51.0 % Hematocrit 43.9 LAB MCV 80.0-100.0 fL MCV 95.2 LAB MCH 26.0-34.0 pG MCH 31.5 LAB MCHC 30.5-36.0 g/dL MCHC 33.0 LAB RDWCV 11.5-15.0 % RDW-CV 14.2 LAB PLTCT 150-400 k/uL Platelet Count 186 LAB MPV 9.0-12.7 fL MPV High 12.8 LAB ANEUT % Neut% 53.6 LAB AANEUT 1.45-7.50 k/uL Abs Neut 3.66 LAB ALYMP % Lymph% 35.8 LAB AALYMP 1.00-4.00 k/uL Abs Lymph 2.46 LAB AMONO % Clare% 8.3 LAB AAMONO <0.87 k/uL Abs Clare 0.57 LAB AEOS % Eosin% 2.0 LAB AAEOS <0.46 k/uL Abs Eosin 0.14 LAB ABASO % Baso% 0.3 LAB AABASO <0.11 k/uL Abs Baso <0.03 LAB AUNRBC 0 /100 WBC NRBCs 0.0 LAB ABNRBC <0.01 k/uL Absolute nRBC <0.01 LAB DTYP DTYPE Auto Diff Performed By: #### CBCDIF #### [facility] [address] [place] [id number] COMP METABOLIC PANEL Collected: 03/17/2018 Status: F Source: PAWNEE 11:10 AM [facility] REPOSITORY TYPE CODE TESTS RESULT OUT OF REFERENCE UNITS RANGE LAB TP 6.3-8.0 g/dL Protein, Total 7.6 LAB ALB 3.9-4.9 g/dL Albumin 4.3 LAB CA 8.5-10.2 mg/dL Calcium, Total 9.5 LAB TBIL 0.2-1.3 mg/dL Bilirubin, Total 0.5 LAB ALKP 38-113 U/L Alkaline Phosphatase 40 LAB AST 14-40 U/L AST 21 LAB GLU 74-99 mg/dL Glucose 81 Result Comment: The [place] Diabetes [employer] (ADA) provides guidance for cutoff values for fasting glucose and random glucose. The ADA defines fasting as no caloric intake for at least 8 hours. Fas ting plasma glucose results between 100 to 125 mg/dL indicate increased risk for diabetes (prediabetes). Fasting plasma glucose results greater than or equal to 126 mg/dL meet the criteria for diagnosis of diabetes. In the absence of unequivocal hyperglycemia, results should be confirmed by repeat testing. In a patient with classic symptoms of hyperglycemia or hyperglycemic crisis, random plasma glucose results greater than or equal to 200 mg/dL meet the criteria for diagnosis of diabetes. Reference: Standards of Medical Care in Diabetes 2016, [place] [employer]. Diabetes Care. 2016.39(Suppl 1). LAB BUN 9-24 mg/dL BUN 11 LAB CRET 0.73-1.22 mg/dL Creatinine 0.94 LAB NA 136-144 mmol/L Sodium High 145 LAB K 3.7-5.1 mmol/L Potassium 4.2 LAB CL 97-105 mmol/L Chloride 103 LAB CO2 22-30 mmol/L CO2 29 LAB AGAP 9-18 mmol/L Anion Gap 13 LAB ALT 10-54 U/L ALT 20 LAB GFRAA eGFR- Amer. >60 LAB GFRNAA . eGFR-All Other Races >60 Result Comment: eGFR (Estimated GFR) Units of measure: mL/min/1.73 meters squared eGFR is derived from the reexpressed MDRD Study equation using the following parameters: serum creatinine, age, gender and race. The creatinine assay has been calibrated to be traceable to IDMS. An eGFR <60 mL/min/1.73m2 for >3 months is consistent with chronic kidney disease. Refer to KDOQI guidelines for clinical interpretation. In patients with unstable renal function, e.g. those with acute kidney injury, the eGFR may not accurately reflect actual GFR. Performed By: #### CMP, LIPB #### [facility] [address] [place] [id number] LIPID PANEL, BASIC Collected: 03/17/2018 Status: F Source: PAWNEE 11:10 AM [facility] REPOSITORY TYPE CODE TESTS RESULT OUT OF REFERENCE UNITS RANGE LAB CHOL <200 mg/dL Cholesterol 170 Result Comment: <200 mg/dL, Desirable 200-239 mg/dL, Borderline high >239 mg/dL, High LAB TRIGLY <150 mg/dL Triglyceride High 168 Result Comment: <150 mg/dL, Normal 150-199 mg/dL, Borderline high 200-499 mg/dL, High >499 mg/dL, Very high LAB HDL >39 mg/dL HDL-Cholesterol 40 Result Comment: 40-59 mg/dL, Acceptable >59 mg/dL, High: Negative risk factor for coronary heart disease <40 mg/dL, Low: Positive risk factor for coronary heart disease LAB LDL <100 mg/dL LDL-Cholesterol 96 Result Comment: <100 mg/dL, Optimal 100-129 mg/dL, Near optimal/above optimal 130-159 mg/dL, Borderline high 160-189 mg/dL, High >189 mg/dL, Very high Secondary prevention optimal LDL Cholesterol levels are recommended to be < 70 mg/dL LAB NONHDL <130 mg/dL Non HDL High Cholesterol 130 Result Comment: <130 mg/dL, Optimal 130-159 mg/dL, Near optimal/above optimal 160-189 mg/dL, Borderline high 190-219 mg/dL, High >219 mg/dL, Very high Secondary prevention optimal non HDL Cholesterol levels are recommended to be < 100 mg/dL LAB FT hrs Fasting Time 12 LAB VLDL <30 mg/dL High VLDL Cholesterol 34 LAB TCHDL <5.10 TC:HDL Ratio 4.25 LAB LDLHDL <2.54 LDL:HDL Ratio 2.40 Result Comment: Reference: 1. National Cholesterol Education Program ATP III Guideline At-A-Glance Quick Desk Reference: National Heart, Lung, and Blood [place]. National Institutes of Health. 2001: NIH Publication No. 01-3305. 2. An International Atherosclerosis Society position paper: global recommendations for the management of dyslipidemia: executive summary, Atherosclerosis. 2014: 232(2):410-413. Performed By: #### CMP, LIPB #### [facility] [address] [place], [place] [address] CBC AND DIFFERENTIAL Collected: 03/17/2018 Status: F Source: PAWNEE 11:10 AM [facility] REPOSIT[facility] TYPE CODE TESTS RESULT OUT OF REFERENCE UNITS RANGE LAB WBC(LOINC) 3.70-11.00 k/uL WBC 5.57 LAB RBC(LOINC) 4.20-6.00 m/uL RBC 4.68 LAB HGB(LOINC) 13.0-17.0 g/dL Hemoglobin 14.4 LAB HCT(LOINC) 39.0-51.0 % Hematocrit 44.3 LAB MCV(LOINC) 80.0-100.0 fL MCV 94.7 LAB MCH(LOINC) 26.0-34.0 pG MCH 30.8 LAB MCHC(LOINC 30.5-36.0 g/dL ) MCHC 32.5 LAB RDWCV(LOIN 11.5-15.0 % C) RDW-CV 13.8 LAB PLTCT(LOIN 150-400 k/uL C) Platelet Count 171 LAB MPV(LOINC) 9.0-12.7 fL MPV High 12.8 LAB ANEUT(LOIN % C) Neut% 50.5 LAB AANEUT(DEBBIE 1.45-7.50 k/uL NC) Abs Neut 2.79 LAB ALYMP(LOIN % C) Lymph% 37.5 LAB AALYMP(DEBBIE 1.00-4.00 k/uL NC) Abs Lymph 2.09 LAB AMONO(LOIN % C) Clare% 8.6 LAB AAMONO(DEBBIE <0.87 k/uL NC) Abs Clare 0.48 LAB AEOS(LOINC % ) Eosin% 3.2 LAB AAEOS(LOIN <0.46 k/uL C) Abs Eosin 0.18 LAB ABASO(LOIN % C) Baso% 0.2 LAB AABASO(DEBBIE <0.11 k/uL NC) Abs Baso <0.03 LAB AUNRBC(DEBBIE 0 /100 WBC NC) NRBCs 0.0 LAB ABNRBC(DEBBIE <0.01 k/uL NC) Absolute nRBC <0.01 LAB DTYP(LOINC ) DTYPE ADIFF Performed By: #### CBCDIF #### [facility] Routine Lab [address] [place], [place] [address] CNOV Observed: 03/09/2018 Status: COMPLETED Source: PAWNEE 4:00 PM [facility] REPOSITORY Office Visit (FAMPWS) AGUSTIN ARROYO ([id number]) 1970 M Date Time Provider Department 03/09/18 4:00 PM LAURA CRISTINA) FAMPWS During your visit today, we recorded the following information about you: Pulse Respiration Blood pressure Weight 80/minute 16/minute 126/98 84.4 kg Laura Cristina MD 03/10/2018 10:20 AM Signed Chief Complaint Patient presents with: Medication Follow-up HPI Agustin Arroyo is a 47 year old male who presents here today for medication follow up. Accompanied today by caregiver Myesha. Patient was admitted to [facility] in [place] from November until 02/25 for behavioral issues related to his schizoaffective disorder. Discharged back to [facility] on Depakote, clozaril, Haldol, and Cogentin for schizoaffective disorder. Added on amlodipine 7.5 mg daily for HTN as well. Adjustments made to his Depakote, haldol, and Cogentin. Schizoaffective symptoms appear much improved per patient and caregiver. No longer hearing voices, denies HI/SI. Able to carry on a conversation today without asking about getting a girlfriend. Has been following up with Dr. Olivier as recommended on discharge and has scheduled appointment in the next month. HTN uncontrolled on current regimen today. Discussed increase in amlodipine to max dose and rechecking in 2 weeks. Past medical history, appointments, medications, allergies reviewed. Previous Medical History PAST MEDICAL HISTORY Diagnosis Date - Hypertension - Schizoaffective disorder, bipolar type (HCC) Previous Surgical History No past surgical history on file. Family History No family history on file. Patient Allergies ALLERGIES Allergen Reactions - Penicillin Hives, Swelling Current Medications Current Outpatient Prescriptions on File Prior to Visit: valproic acid (DEPAKENE) 250 mg/5 mL syrup Take 20 mL by mouth twice daily. cloZAPine 200 mg tablet Take 1 tablet by mouth twice daily. cloZAPine (CLOZARIL) 25 mg tablet Take 2 tablets by mouth twice daily. metoprolol tartrate, short acting, (LOPRESSOR) 50 mg tablet Take 1 tablet by mouth twice daily. traZODone (DESYREL) 50 mg tablet Take 1 tablet by mouth daily at bedtime. No current facility-administered medications on file prior to visit. Social History Social History Marital status: Spouse name: Years of education: Number of children: Social History Main Topics Smoking status: Current Every Day Smoker Packs/day: 0.00 Years: 30.00 Smokeless tobacco: Never Used Alcohol use: No Drug use: No Review of Symptoms REVIEW OF SYSTEMS GENERAL: No weight loss, malaise or fevers RESPIRATORY: Negative for cough, hemoptysis, wheezing, COPD, dyspnea or shortness of breath CARDIOVASCULAR: Negative for chest pain, leg swelling, hypertension, CHF or palpitations GI: No nausea, vomiting, or diarrhea SKIN: Negative for lesions, rash, and itching EXAM: BP 122/96 Pulse 80 Resp 16 Wt 84.4 kg (186 lb) BMI 24.37 kg/m? General Appearance: Well appearing, alert, in no acute distress, well-hydrated, well nourished.. Skin: Skin color, texture, turgor normal, no suspicious rashes or lesions. Lungs: Lungs clear to auscultation. No wheezing, rhonchi, rales. Heart: RRR without murmur, gallop, or rubs. No ectopy. Abdomen: Normal abdominal exam, Abdomen soft, non-tender. Bowel sounds normal. No masses, organomegaly. Extremities: No deformities, edema, skin discoloration, clubbing or cyanosis. Good capillary refill. . Health Maintenance List DTAP,TDAP,TD(1 - Tdap) due on 1991 ONE PNEUMOVAX PRIOR TO AGE 67 due on 1991 LIPID SCREEN due on 2007 INFLUENZA(1) due on 01/22/2018 DIABETES SCREEN due on 10/12/2020 ASSESSMENT/PLAN: 1. Schizoaffective disorder, bipolar type (HCC) - ICD9: 295.70, ICD10: F25.0 (primary diagnosis) Improved on current regimen. Med list updated. Will have patient follow up with Dr. Olivier. - CLOZAPINE 200 MG TABLET - CLOZAPINE 25 MG TABLET - METOPROLOL TARTRATE 50 MG TABLET - TRAZODONE 50 MG TABLET 2. Hypertension, essential - ICD9: 401.9, ICD10: I10 - poor control - Increase amlodipine (Norvasc) - Encouraged dietary sodium restriction/DASH diet - Recommended regular aerobic exercise. - Reviewed risks of HTN and principles of treatment - Goal of BP <140/90 - AMLODIPINE 5 MG TABLET - LIPID PANEL BASIC - COMP METABOLIC PANEL - AMLODIPINE 10 MG TABLET Laura Cristina MD Referring Provider: JORGE OLIVIER [[id number]] Allergies As of Date: 03/09/2018 Noted Allergy Reaction PENICILLIN 10/07/2017 4 - Hives 7 - Swelling Date Reviewed: 03/09/2018 Reviewed by: Dl Moncada Ma - Fully Assessed Reason for Visit: Medication Follow-up [270] Primary Visit Diagnosis:Schizoaffective disorder, bipolar type (HCC) [F25.0] Other Visit Diagnosis:Hypertension, essential [I10] Order(s):cloZAPine 200 mg tabletTake 1 tablet by mouth twice daily.Disp: 60 tabletRfl: 1 cloZAPine (CLOZARIL) 25 mg tabletTake 2 tablets by mouth twice daily.Disp: 60 tabletRfl: 1 metoprolol tartrate, short acting, (LOPRESSOR) 50 mg tabletTake 1 tablet by mouth twice daily.Disp: 60 tabletRfl: 1 traZODone (DESYREL) 50 mg tabletTake 1 tablet by mouth daily at bedtime.Disp: 30 tabletRfl: [address] (DEPAKOTE) 500 mg EC tabletTake 2 tablets by mouth twice daily.Disp: Rfl: haloperidol decanoate (HALDOL DECANOATE) 100 mg/mL injectionInject 2 mL intramuscularly once every month.Disp: Rfl: LIPID PANEL BASIC [SQLIPB] Order #: [id number] FUTURE COMP METABOLIC PANEL [SQCMP] Order #: [id number] FUTURE amLODIPine (NORVASC) 10 mg tabletTake 1 tablet by mouth once daily.Disp: 30 tabletRfl: 5 Prescriptions as of 03/09/2018 Sig: CLOZAPINE 200 MG TABLET Take 1 tablet by mouth twice * CLOZAPINE 25 MG TABLET Take 2 tablets by mouth twice* METOPROLOL TARTRATE 50 MG TAB* Take 1 tablet by mouth twice * TRAZODONE 50 MG TABLET Take 1 tablet by mouth daily * BENZTROPINE 1 MG TABLET Take 1 mg by mouth twice karen* DIVALPROEX 500 MG TABLET,KRIS* Take 2 tablets by mouth twice* HALOPERIDOL DECANOATE 100 MG/* Inject 2 mL intramuscularly o* AMLODIPINE 10 MG TABLET Take 1 tablet by mouth once d* Problem List As Of Date 03/09/2018 Noted Resolved Schizoaffective disorder, bipolar type (HCC) [F* Prescriptions ordered this encounter Disp Refills Start End CLOZAPINE 200 MG TABLET 60 t* 1 03/09/2018 Class: Med Update Route: ORAL Sig: Take 1 tablet by mouth twice daily. CLOZAPINE 25 MG TABLET 60 t* 1 03/09/2018 Class: Med Update Route: ORAL Sig: Take 2 tablets by mouth twice daily. METOPROLOL TARTRATE 50 MG TABLET 60 t* 1 03/09/2018 Route: ORAL Sig: Take 1 tablet by mouth twice daily. TRAZODONE 50 MG TABLET 30 t* 3 03/09/2018 Route: ORAL Sig: Take 1 tablet by mouth daily at bedtime. DIVALPROEX 500 MG TABLET,DELAYED REL* 03/09/2018 Class: Med Update Route: ORAL Sig: Take 2 tablets by mouth twice daily. HALOPERIDOL DECANOATE 100 MG/ML INTR* 03/09/2018 Class: Med Update Route: INTRAMUSCULA Sig: Inject 2 mL intramuscularly once every month. AMLODIPINE 5 MG TABLET 03/09/2018 03/09/2018 Class: Med Update Route: ORAL Sig: Take 1.5 tablets by mouth once daily. AMLODIPINE 10 MG TABLET 30 t* 5 03/09/2018 Route: ORAL Sig: Take 1 tablet by mouth once daily. Medications Discontinued During This Encounter cloZAPine 200 mg tablet 60 t* 1 10/07/2017 03/09/2018 Route: ORAL Sig: Take 1 tablet by mouth twice daily. Disc: Reason for discontinue is not on file. cloZAPine (CLOZARIL) 25 mg tablet 60 t* 1 10/07/2017 03/09/2018 Route: ORAL Sig: Take 2 tablets by mouth twice daily. Disc: Reason for discontinue is not on file. metoprolol tartrate, short acting, (* 60 t* 1 10/07/2017 03/09/2018 Route: ORAL Sig: Take 1 tablet by mouth twice daily. Disc: Reason for discontinue is not on file. traZODone (DESYREL) 50 mg tablet 30 t* 1 10/07/2017 03/09/2018 Route: ORAL Sig: Take 1 tablet by mouth daily at bedtime. Disc: Reason for discontinue is not on file. haloperidol lactate (HALDOL INJECTIO* 03/09/2018 Class: Historical Med Route: INJECTION(UNSPECIFIED PARENTERAL ROUTES) Sig: by INJECTION(UNSPECIFIED PARENTERAL ROUTES) route. Disc: Reason for discontinue is not on file. valproic acid (DEPAKENE) 250 mg/5 mL* 473 * 2 12/08/2017 03/09/2018 Route: ORAL Sig: Take 20 mL by mouth twice daily. Disc: Reason for discontinue is not on file. amLODIPine (NORVASC) 5 mg tablet 03/09/2018 03/09/2018 Class: Med Update Route: ORAL Sig: Take 1.5 tablets by mouth once daily. Disc: Reason for discontinue is not on file. Disposition: Return in about 6 months (around 09/07/2018). Follow-up and Disposition History Recorded Encounter Status:Closed by LAURA CRISTINA MD on 03/10/18 PROGRESS Observed: 03/09/2018 Status: COMPLETED Source: PAWNEE 3:31 PM [facility] REPOSITORY HNO ID: [id number] Author: Laura Huntley) Jonnie Service: (none) Author Type: Physician Type: Progress Notes Filed: 03/10/2018 10:20 AM Note Text: Chief Complaint Patient presents with: Medication Follow-up HPI Agustin Arroyo is a 47 year old male who presents here today for medication follow up. Accompanied today by caregiver Myesha. Patient was admitted to [facility] in [place] from November until 02/25 for behavioral issues related to his schizoaffective disorder. Discharged back to [facility] on Depakote, clozaril, Haldol, and Cogentin for schizoaffective disorder. Added on amlodipine 7.5 mg daily for HTN as well. Adjustments made to his Depakote, haldol, and Cogentin. Schizoaffective symptoms appear much improved per patient and caregiver. No longer hearing voices, denies HI/SI. Able to carry on a conversation today without asking about getting a girlfriend. Has been following up with Dr. Olivier as recommended on discharge and has scheduled appointment in the next month. HTN uncontrolled on current regimen today. Discussed increase in amlodipine to max dose and rechecking in 2 weeks. Past medical history, appointments, medications, allergies reviewed. Previous Medical History PAST MEDICAL HISTORY Diagnosis Date - Hypertension - Schizoaffective disorder, bipolar type (HCC) Previous Surgical History No past surgical history on file. Family History No family history on file. Patient Allergies ALLERGIES Allergen Reactions - Penicillin Hives, Swelling Current Medications Current Outpatient Prescriptions on File Prior to Visit: valproic acid (DEPAKENE) 250 mg/5 mL syrup Take 20 mL by mouth twice daily. cloZAPine 200 mg tablet Take 1 tablet by mouth twice daily. cloZAPine (CLOZARIL) 25 mg tablet Take 2 tablets by mouth twice daily. metoprolol tartrate, short acting, (LOPRESSOR) 50 mg tablet Take 1 tablet by mouth twice daily. traZODone (DESYREL) 50 mg tablet Take 1 tablet by mouth daily at bedtime. No current facility-administered medications on file prior to visit. Social History Social History Marital status: Spouse name: Years of education: Number of children: Social History Main Topics Smoking status: Current Every Day Smoker Packs/day: 0.00 Years: 30.00 Smokeless tobacco: Never Used Alcohol use: No Drug use: No Review of Symptoms REVIEW OF SYSTEMS GENERAL: No weight loss, malaise or fevers RESPIRATORY: Negative for cough, hemoptysis, wheezing, COPD, dyspnea or shortness of breath CARDIOVASCULAR: Negative for chest pain, leg swelling, hypertension, CHF or palpitations GI: No nausea, vomiting, or diarrhea SKIN: Negative for lesions, rash, and itching EXAM: BP 122/96 Pulse 80 Resp 16 Wt 84.4 kg (186 lb) BMI 24.37 kg/m? General Appearance: Well appearing, alert, in no acute distress, well-hydrated, well nourished.. Skin: Skin color, texture, turgor normal, no suspicious rashes or lesions. Lungs: Lungs clear to auscultation. No wheezing, rhonchi, rales. Heart: RRR without murmur, gallop, or rubs. No ectopy. Abdomen: Normal abdominal exam, Abdomen soft, non-tender. Bowel sounds normal. No masses, organomegaly. Extremities: No deformities, edema, skin discoloration, clubbing or cyanosis. Good capillary refill. . Health Maintenance List DTAP,TDAP,TD(1 - Tdap) due on 1991 ONE PNEUMOVAX PRIOR TO AGE 67 due on 1991 LIPID SCREEN due on 2007 INFLUENZA(1) due on 01/22/2018 DIABETES SCREEN due on 10/12/2020 ASSESSMENT/PLAN: 1. Schizoaffective disorder, bipolar type (HCC) - ICD9: 295.70, ICD10: F25.0 (primary diagnosis) Improved on current regimen. Med list updated. Will have patient follow up with Dr. Olivier. - CLOZAPINE 200 MG TABLET - CLOZAPINE 25 MG TABLET - METOPROLOL TARTRATE 50 MG TABLET - TRAZODONE 50 MG TABLET 2. Hypertension, essential - ICD9: 401.9, ICD10: I10 - poor control - Increase amlodipine (Norvasc) - Encouraged dietary sodium restriction/DASH diet - Recommended regular aerobic exercise. - Reviewed risks of HTN and principles of treatment - Goal of BP <140/90 - AMLODIPINE 5 MG TABLET - LIPID PANEL BASIC - COMP METABOLIC PANEL - AMLODIPINE 10 MG TABLET Laura Cristina MD CBC AND DIFFERENTIAL Collected: 03/09/2018 Status: F Source: PAWNEE 3:07 PM [facility] REPOSITORY TYPE CODE TESTS RESULT OUT OF REFERENCE UNITS RANGE LAB WBC 3.70-11.00 k/uL WBC 5.99 LAB RBC 4.20-6.00 m/uL RBC 4.58 LAB HGB 13.0-17.0 g/dL Hemoglobin 14.3 LAB HCT 39.0-51.0 % Hematocrit 43.3 LAB MCV 80.0-100.0 fL MCV 94.5 LAB MCH 26.0-34.0 pG MCH 31.2 LAB MCHC 30.5-36.0 g/dL MCHC 33.0 LAB RDWCV 11.5-15.0 % RDW-CV 13.8 LAB PLTCT 150-400 k/uL Platelet Count 161 LAB MPV 9.0-12.7 fL MPV 12.3 LAB ANEUT % Neut% 46.8 LAB AANEUT 1.45-7.50 k/uL Abs Neut 2.78 LAB ALYMP % Lymph% 42.2 LAB AALYMP 1.00-4.00 k/uL Abs Lymph 2.53 LAB AMONO % Clare% 7.5 LAB AAMONO <0.87 k/uL Abs Clare 0.45 LAB AEOS % Eosin% 3.2 LAB AAEOS <0.46 k/uL Abs Eosin 0.19 LAB ABASO % Baso% 0.3 LAB AABASO <0.11 k/uL Abs Baso <0.03 LAB AUNRBC 0 /100 WBC NRBCs 0.0 LAB ABNRBC <0.01 k/uL Absolute nRBC <0.01 LAB DTYP DTYPE Auto Diff Performed By: #### CBCDIF #### [facility] [address] [place], [place] [address] CBC AND DIFFERENTIAL Collected: 03/03/2018 Status: F Source: PAWNEE 1:35 PM [facility] REPOSITORY TYPE CODE TESTS RESULT OUT OF REFERENCE UNITS RANGE LAB WBC 3.70-11.00 k/uL WBC 7.73 LAB RBC 4.20-6.00 m/uL RBC 4.46 LAB HGB 13.0-17.0 g/dL Hemoglobin 14.0 LAB HCT 39.0-51.0 % Hematocrit 42.1 LAB MCV 80.0-100.0 fL MCV 94.4 LAB MCH 26.0-34.0 pG MCH 31.4 LAB MCHC 30.5-36.0 g/dL MCHC 33.3 LAB RDWCV 11.5-15.0 % RDW-CV 13.9 LAB PLTCT 150-400 k/uL Platelet Count 169 LAB MPV 9.0-12.7 fL MPV High 13.0 LAB ANEUT % Neut% 54.3 LAB AANEUT 1.45-7.50 k/uL Abs Neut 4.18 LAB ALYMP % Lymph% 33.4 LAB AALYMP 1.00-4.00 k/uL Abs Lymph 2.58 LAB AMONO % Clare% 9.4 LAB AAMONO <0.87 k/uL Abs Clare 0.73 LAB AEOS % Eosin% 2.6 LAB AAEOS <0.46 k/uL Abs Eosin 0.20 LAB ABASO % Baso% 0.3 LAB AABASO <0.11 k/uL Abs Baso <0.03 LAB AUNRBC 0 /100 WBC NRBCs 0.0 LAB ABNRBC <0.01 k/uL Absolute nRBC <0.01 LAB DTYP DTYPE Auto Diff Performed By: #### CBCDIF #### [facility] [address] [place], [place] [address] EMERGENCY DEPARTMENT Observed: 12/12/2017 Status: F Source: JAZZY SUMMARY 8:22 AM [facility] REPOSITORY [facility] Medical Records Department [address] [place] [address] Emergency Department Summary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 [address] [place] [address] Host Order: [id number] TYPE CODE TESTS RESULT OUT OF REFERENCE UNITS RANGE LAB THC Negative Cannabinoids (THC) Negative Result Comment: Cutoff concentration for detection is 50 ng/mL LAB PCP Negative Phencyclidine Negative Result Comment: Cutoff concentration for detection is 25 ng/mL LAB SHAHRIAR ER Negative Negative Cocaine Result Comment: Cutoff concentration for detection is 150 ng/mL LAB mAMP ER Negative Methamphetamine Negative Result Comment: Cutoff concentration for detection is 500 ng/mL LAB OPI1 100 ER Negative Negative Opiates Result Comment: Cutoff concentration for detection is 100 ng/mL LAB AMP ER Negative Amphetamines Negative Result Comment: Cutoff concentration for detection is 500 ng/mL LAB BZO ER Negative Benzodiazepines Negative Result Comment: Cutoff concentration for detection is 150 ng/mL LAB TCA Negative Tricyclic Antidepressants Negative Result Comment: Cutoff concentration for detection is 300 ng/mL LAB MTD ER Negative Methadone Negative Result Comment: Cutoff concentration for detection is 200 ng/mL LAB BAR Negative Barbiturates Negative Result Comment: Cutoff concentration for detection is 200 ng/mL LAB OXY Negative Oxycodone Negative Result Comment: Cutoff concentration for detection is 100 ng/mL LAB PPX Negative Propoxyphene Negative Result Comment: Cutoff concentration for detection is 300 ng/mL CBC W/AUTO DIFF Collected: 06/16/2017 Status: F Source: [facility] 9:45 AM [facility] REPOSITORY Order Comment: Testing performed at [facility], [address] [place] [address] Host Order: [id number] TYPE CODE TESTS RESULT OUT OF REFERENCE UNITS RANGE LAB WBC 4.1-9.6 10*3/uL WBC 6.8 LAB RBC 4.63-6.08 10*6/uL Low RBC 4.31 LAB HGB 13.7-17.5 g/dL Low Hemoglobin 13.5 LAB HCT 40.1-51.0 % Low Hematocrit 38.6 LAB MCV 79.2-93.5 fL MCV 89.6 LAB MCH 25.7-32.2 pg MCH 31.3 LAB MCHC 32.3-36.0 g/dL MCHC 35.0 LAB RDW 11.7-14.4 % RDW 13.7 LAB PLT 173-353 10*3/uL Low Platelet 162 LAB MPV 9.4-12.4 fL MPV 11.9 LAB LEO% 34.0-69.5 % Neutrophil % 68.1 LAB LYM % 20.6-52.4 % Lymphocyte % 20.7 LAB MONO % 5.0-12.4 % Monocyte % 10.1 LAB EOS % 0.8-6.4 % Eosinophil % 1.0 LAB BAS % 0.2-1.2 % Low Basophil % 0.1 LAB LEO C 1.7-5.8 10*3/uL Neutrophil Count 4.6 LAB LYM C 1.3-3.7 10*3/uL Lymphocyte Count 1.4 LAB MONO C 0.3-0.6 10*3/uL Monocyte High Count 0.7 LAB EOS C 0.0-0.5 10*3/uL Eosinophil Count 0.1 LAB BAS C 0.0-0.1 10*3/uL Basophil Count 0.0 ALCOHOL BLOOD Collected: 06/16/2017 Status: F Source: [facility] 9:45 AM [facility] REPOSITORY Order Comment: Testing performed at [facility], [address] [place] [address] Host Order: [id number] TYPE CODE TESTS RESULT OUT OF REFERENCE UNITS RANGE LAB DRAWSITE( LOINC) Draw Site Right Antecubital LAB SkinPrep( LOINC) Skin Prep Betadine Used LAB PHLEB(DEBBIE NC) [facility] Breastfeeding Peer Counselor Name Dylan LAB ALCO-B <10 mg/dL Alcohol, <10 Blood Result Comment: < 10 mg/dL = None detected. (minimum sensitivity) 10- 50 mg/dL or 0.01-0.05 % = None to mild euphoria. 50-100 mg/dL or 0.05-0.10 % = Mild influence on stereoscopic vision and dark adaptation. 80 mg/dL or 0.08 % = Legally intoxicated. 100-150 mg/dL or 0.10-0.15 % = Euphoric disappearance of inhibition. Prolonged reaction time. 150-200 mg/dL or 0.15-0.20 % = Moderately severe poisoning. Reaction time greatly prolonged. Loss of inhibition and slight disturbances of equilibrium and coordination. 200-250 mg/dL or 0.20-0.25 % = Severe degree of poisoning. Disturbances of equilibrium and coordination. Retardation of the thought processes and clouding of consciousness. 250-400 mg/dL or 0.25-0.40 % = Deep, possible fatal coma. BASIC METABOLIC Collected: 06/16/2017 Status: F Source: [facility] 9:45 AM [facility] REPOSITORY Order Comment: Testing performed at [facility], [address] [place] [address] Host Order: [id number] TYPE CODE TESTS RESULT OUT OF REFERENCE UNITS RANGE LAB GLU 74-106 mg/dL Glucose 98 LAB BUN 8-19 mg/dL BUN 15 LAB Creat 0.6-1.2 mg/dL Creatinine 0.8 LAB CA 8.4-10.2 mg/dL Calcium 9.8 LAB NA 137-145 mEq/L Sodium 142 LAB K 3.3-4.9 mEq/L Potassium 4.2 LAB CL 98-107 mEq/L Chloride 105 LAB TCO2 22.0-30.0 mEq/L Total CO2 26.0 LAB ANIO 12-20 mmol/L Anion Gap 15 EST GLOMERULAR Collected: 06/16/2017 Status: F Source: COMMUNITY FILTRATION RATE 9:45 AM [facility] REPOSITORY Order Comment: [place] Order: [id number] The calculated GFR uses the (IDMS)-traceable creatinine MDRD equation and is reported in mL/min/1.73 square meters. This formula is not recommended for use with individuals with unstable creatinine concentrations, extremes in muscle mass and/or body size, or alternative diets and may not be suitable for all patient populations. Testing performed at [facility], [address] [place] [address] TYPE CODE TESTS RESULT OUT OF REFERENCE UNITS RANGE LAB EAGFR >60 Est. >60 Adult GFR Result Comment: The reported eGFR is based on a non- patient, for Americans multiply the result by 1.212. THYROID-STIMULATING HORMONE Collected: Status: F Source: [facility] 06/16/2017 9:45 AM [facility] Order Comment: Testing performed at [facility], [address] [place] [address] Host Order: [id number] TYPE CODE TESTS RESULT OUT OF RANGE REFERENCE UNITS LAB TSH 0.465-4.680 uIU/mL TSH 1.350 ALLERGIES ALLERGIES DATE TYPE / CODE NAME / CODE REACTION SEVERITY SOURCE 04/20/2018 Drug Penicillins/F0010 Angioedema Unknown Jazzy Allergy/416 03396(RXNORM) [facility] 511552([facility] ED CT) Repository 10/07/2017 DRUG PENICILLIN HIVES High [facility] INGREDI/[address] [place] 054328(SNOM Repository ED CT) Drug penicillin/75154( Swelling of lips Severe Community Allergy/416 RXNORM) (severity Hospitals and 000869([facility] ED CT) (qualifier Repository value) ENCOUNTERS ENCOUNTERS ADMIT/DISCHARGE ACCOUNT ADMITTING ENCOUNTER LOCATION SOURCE NUMBER CLASS 04/20/2018/04/21/20 [id number] Emergency [address] ing:ED Repository 04/18/2018/04/18/20 [id number] Emergency [address] ing:ED Repository 04/18/2018/04/18/20 [id number] Emergency [address] ing:ED Repository 03/26/2018/03/27/20 [id number] Emergency [address] ing:ED Repository 03/17/2018/03/17/20 [id number] Ambulatory [address] Repository 03/09/2018/03/10/20 [id number] Ambulatory [address] Repository 12/08/2017/12/10/19 [id number] [facility] ing:ED Repository 11/19/2017/11/20/19 [id number] Ambulatory [address] Repository 10/12/2017/10/13/19 [id number] Ambulatory [address] Repository 10/07/2017/10/12/19 [id number] Ambulatory [address] Repository 06/16/2017/06/16/19 [id number] ZWAYER, Emergency ERBuilding:B_ Community [address] ERRoom: Hospitals and TGT5Ntr: [facility] Repository PAYERS PAYERS ENCOUNTER GUARANTOR PAYER SUBSCRIBER SOURCE 04/20/2018 AGUSTIN D Primary AGUSTIN D Jazzy [id number] Insurance:MEDICARE FOBBSDOB: [facility] A [facility] [id number] [facility] [address]Byp: Number: Repository [id number] () Date:2018-04-20 04/20/2018 Secondary AGUSTIN D Jazzy Insurance:MEDICAIDPol FOBBSDOB: [facility] ic Number: [id number] Hospital [id number] Repository Date:2018-04-20 04/20/2018 Tertiary NOT GIVENUNK Jazzy Insurance:SELF PAY [facility] Number: Effective Repository Date:2018-04-20 04/18/2018 AGUSTIN D Primary AGUSTIN D [facility] [id number] Insurance:MEDICARE FOBBSDOB: [facility] A [facility] [id number] [facility] [place] [address]Qhq: Number: Repository [id number] () Date:2018-04-18 04/18/2018 Secondary AGUSTIN D [facility] Insurance:MEDICAIDPol FOBBSDOB: [facility] ic Number: [id number] Hospital [id number] Repository Date:2018-04-18 04/18/2018 Tertiary NOT GIVENUNK [facility] Insurance:SELF PAY [facility] Number: Effective Repository Date:2018-04-18 04/18/2018 AGUSTIN D Primary AGUSTIN D Jazzy [id number] Insurance:MEDICARE FOBBSDOB: [facility] PART A [facility] [id number] [facility] [address]Noj: Number: Repository [id number] (HP) Date:2018-04-18 04/18/2018 Secondary AGUSTIN D Jazzy Insurance:MEDICAIDPol FOBBSDOB: [facility] icy Number: [id number] Hospital [id number] Repository Date:2018-04-18 04/18/2018 Tertiary NOT GIVENUNK Jazzy Insurance:SELF PAY [facility] Number: Effective Repository Date:2018-04-18 03/26/2018 AGUSTIN D Primary AGUSTIN D [facility] [id number] Insurance:MEDICARE FOBBSDOB: [facility] PART A [facility] [id number] [facility] [address]Ghp: Number: Repository [id number] () Date:2018-03-26 03/26/2018 Secondary AGUSTIN D [facility] Insurance:MEDICAIDPol FOBBSDOB: [facility] icy Number: [id number] Hospital [id number] Repository Date:2018-03-26 03/26/2018 Tertiary NOT GIVENUNK Jazzy Insurance:SELF PAY [facility] Number: Effective Repository Date:2018-03-26 12/08/2017 AGUSTIN D Primary AGUSTIN D [place] [id number] Insurance:MEDICARE FOBBSDOB: [facility] PART A [facility] [id number] Number: Repository [id number]: [phone] [id number] [phone] () Date:2017-12-08 12/08/2017 Secondary AGUSTIN D Jazzy Insurance:MEDICAIDPol FOBBSDOB: [facility] icy Number: [id number] [id number] Repository Date:2017-12-08 12/08/2017 Tertiary NOT GIVENUNK [facility] Insurance:SELF PAY [facility] Number: Effective Repository Date:2017-12-08 06/16/2017 Primary AGUSTIN FOBBSDOB: Community Insurance:MEDICAREPol [id number] Hospitals and icy Number: [facility] [id number] [place], [place] Repository Date:[id number] [address] [id number] [id number]~[address]LG: 06/16/2017 Secondary AGUSTIN LIYAHOB: Community Insurance:100 [id number] [facility] and MEDICAIDPolicy [facility] Number: [place], [place] Repository [id number] Date:[id number], [place] [address]~[address]WP:
== END 2018-04-18 22:09 | disposition home or self-care (01) ==
LOC: ED 21:22
PROVIDERS: Emergency Provider Emergency Medicine; Family Provider Family Medicine; PCP Family Medicine
DX: R51 Headache (principal); F17.200 Nicotine dependence, unspecified, uncomplicated
CPT/HCPCS: 99283; 99284

== ENCOUNTER 2018-04-20 16:07 | Emergency (ER) | payer MEDICARE, MEDICAID, SELFPAY ==
[2018-04-20 16:08] VITALS: BP 113/73; PULSE 63; RESP 18; TEMP 36.6; O2SAT 100; BMI 23.7
[2018-04-20] MEDS: Ibuprofen 400 MG Tablet 800 MG PO (16:53)
--- NOTE | 2018-04-20 17:05 | ED.DCSUM_ITS ---
- ER Visit Summary Date of Service: 04/20/18 Chief Complaint: Aggressive behavior History of Present Illness: The patient is a [address] Maya and the counseling center. Staff from [facility] reports that that say the patient has threatened people there. Patient reports that he told someone if they did not give me a cigar I was going to kill them. However he reports that he was joking around did not mean this. He denies any suicidal homicidal ideation. Does report that he has auditory hallucinations that are chronic and unchanged. These are not command hallucinations. He states that he is felt like his mind has been racing since yesterday when he missed his medications. H owever he took them today. Patient was hospitalized at [facility] and released April 12. He was here 3 days ago. Physical Examination: Vitals: Stable. Afebrile. General: Well-nourished and well-developed. Head: Normocephalic atraumatic. Neck: Supple, no lymphadenopathy. No JVD. Nontender. Cardiovascular: Regular rate and rhythm. No murmurs. Respiratory: No respiratory distress. Clear to auscultation bilaterally. Abdominal: Soft, nontender, nondistended, normal bowel sounds. No guarding, rebound, or peritoneal signs. Back: Nontender. Extremities: Nontender, no edema. Skin: Normal color, no rash. Neurologic: Alert and oriented ?3. Cranial nerves II through XII are intact. Normal strength and sensation. Mental status exam: Patient appears their stated age. Good posture and grooming. Good eye contact. Normal rate, volume, and latency of speech. No suicidal or homicidal ideation. Flow of thought is logical. Insight and judgment is poor. Flat affect. Test Results: CBC is normal. Chem-7 is more for chloride 110. Tox screen is negative. Blood alcohol level is 0. Depakote level is 51. Emergency Department Course and Treatment: Patient complained of back pain was given dose of ibuprofen p.o. He is resting comfortably while here. Treatment Plan: The patient was seen by the counseling center and they are in the process of getting him placed in a psychiatric facility. Disposition: Pending Impression: 1. Schizoaffective disorder. 2. Aggressive behavior. This note was generated with [employer] dictation software. It may contain incorrect words, spelling, and punctuation that were not noted in review of the chart prior to signing ED Disposition - Plan for ED Patient: Chief Complaint: Mental Health Referrals: Catrachito Cristina MD [Primary Care Provider] -
[2018-04-20 17:09] LABS: Absolute Lymphocyte Count 2.32 X10^3/ul (0.83-4.51); Absolute Neutrophil Count 3.6 X10^3/uL (2.0-7.7); Basophil# 0.01 X10^3/uL; Basophil% 0.2 % (0-1); Eosinophil# 0.13 X10^3/uL; Lymphocyte # 2.32 X10^3/ul (4.0); Lymphocyte % 34.9 % (19-41); Mean Corp Hgb Conc 33.3 g/gl (32-36); Mean Corpuscular Hgb 31.1 pg (27.0-32.0); Mean Corpuscular Volume 93.4 fL (80-94); Mean Platelet Vol. 12.9 fl (6.2-12.0); Monocyte# 0.55 X10^3/uL; Monocyte% 8.3 % (0-10); Neutrophil # 3.63 X10^3/uL (2.7-7.7); Neutrophil % 54.4 % (47-70); Platelet Count 178 K/mm3 (150-450); RBC Distribution Width CV 13.8 % (11.6-14.6); RBC Distribution Width SD 45.7 fl (35.1-43.9); Red Blood Count 4.82 M/mm3 (4.6-6.2); White Blood Count 6.7 K/mm3 (4.4-11.0)
[2018-04-20 17:33] LABS: POSITIVE COUNT NO; POSITIVE DIFFERENTIAL NO; POSITIVE MORPHOLOGY NO
[2018-04-20 17:36] LABS: Anion Gap 5 (5-15); BUN 14 mg/dL (7-18); Calcium,Total 8.6 mg/dL (8.5-10.1); Chloride 110 mmol/L (98-107); Creatinine, Serum 1.08 mg/dL (0.70-1.30); EST Glomerular Filtration Rate 78 mL/min (>60); Est Glom Filt Rate - Afr Amer 95 mL/min (>60); Estimated Creatinine Clearance 100.42 ml/min; Glucose 92 mg/dL (74-106); Potassium 3.9 mmol/L (3.5-5.1); Sodium Level 143 mmol/L (136-145)
--- NOTE | 2018-04-20 17:55 | ED.RN ---
CALLED [facility]. COUNSELOR IS IN [place]. NOT SURE HOW LONG BEFORE THEY GET HERE
[2018-04-20 18:08] LABS: Alcohol, Blood (Medical)-Serum < 3.0 mg/dL
[2018-04-20 18:15] LABS: Amphetamine Urine VISTA NEGATIVE (<1000 ng/mL); Barbiturate Urine VISTA NEGATIVE (< 200 ng/mL); Benzodiazepine Urine VISTA NEGATIVE (< 200 ng/mL); Cocaine Urine VISTA NEGATIVE (< 300 ng/mL); Ecstacy Urine VISTA NEGATIVE (< 500 ng/mL); Methadone Urine VISTA NEGATIVE (< 300 ng/mL); PCP Urine VISTA NEGATIVE (< 25 ng/mL); THC Urine VISTA NEGATIVE (< 50 ng/mL); Vista UDS pH Range 6
[2018-04-20 19:26] VITALS: BP 126/80; PULSE 59; RESP 16
[2018-04-20 19:51] LABS: Valproic Acid (Depakene) Level 51 ug/mL (50-100)
--- NOTE | 2018-04-20 21:13 | ED.RN ---
REYNOLD FROM [facility] IS HERE TO SEE PT.
--- NOTE | 2018-04-20 21:50 | ED.RN ---
bertrand garcia called and has denied patient at this time due to patient has no more medicare days left
[2018-04-20 22:00] VITALS: PULSE 60; RESP 16
--- NOTE | 2018-04-20 22:06 | ED.RN ---
REYNOLD FROM [facility] CALLED. SHE STATED SHE CALLED [facility] IN [place] AND IT IS PART OF PTS CARE PLAN TO RETURN IF NEED BE. REYNOLD STATED THERE ARE NO BEDS AVAILABLE TONIGHT BUT THEY ARE FOLLOWING UP AT 9AM TO REEVALUATE A BED BEING AVAILABLE.
--- NOTE | 2018-04-20 23:26 | ED.RN ---
PT FOUND IN ROOM SMOKING. [facility] CALLED TO SEARCH PT. NO OTHER CIGARETTES FOUND. 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 PATIENT EDUCATED ON HOSPITAL TOBACCO POLICY. NURSE HAS ALSO OVER HEARD PATIENT TALKING TO HIMSELF WHICH HE STATES HE DOES FREQUENTLY.
[2018-04-21] VITALS (15 sets, daily range): BP systolic 121–129; BP diastolic 62–99; PULSE 60–97; RESP 14–18; O2SAT 99–100
--- NOTE | 2018-04-21 07:10 | NURSING ---
CALLED [facility] FOR MED LIST. PHONE NUMBER DOESN'T WORK
--- NOTE | 2018-04-21 09:58 | NURSING ---
CALL[facility]. TALKED TO OFELIA. PATIENT WAS DECLINED AT [facility]. HE HAS FAXED INFO TO [facility]
[2018-04-21] MEDS: amLODIPine 10 MG Tablet PO (11:16)
[2018-04-21] MEDS: Divalproex (ER) 500 MG Tablet 1000 MG PO (11:16)
[2018-04-21] MEDS: Docusate Sodium 100 MG Capsule PO (11:16)
[2018-04-21] MEDS: Metoprolol Tartrate 50 MG Tablet PO (11:18)
--- NOTE | 2018-04-21 11:21 | EKG12_ITS ---
Test Reason : [facility] [place] Pressure : / mmHG Vent. Rate : 081 BPM Atrial Rate : 081 BPM P-R Int : 134 ms QRS Dur : 080 ms QT Int : 390 ms P-R-T Axes : 264 032 026 degrees QTc Int : 453 ms Unusual P axis and short [place], probable junctional tachycardia Abnormal ECG Confirmed by ALYSE REY, BEKAH ([id number]), book or script editor JULY MAHONEY ([id number]) on 04/26/2018 2:10:36 PM Referred By: SHAD Confirmed By:BEKAH CULLEN MD
[2018-04-21 12:47] LABS: AST(SGOT) 20 U/L (15-37); Alanine Aminotransfer ALT/SGPT 25 U/L (16-61); Albumin, Serum 3.5 g/dL (3.2-5.0); Alkaline Phosphatase 45 U/L (45-117); Bilirubin, Direct 0.14 mg/dL (0.00-0.30); Globulin 4.2 g/dL (2.2-4.2); Protein, Total 7.7 g/dL (6.4-8.2)
--- NOTE | 2018-04-21 13:29 | ED.RN ---
pt walked off of unit, pt was brought back into the ed by Flor HODGE and Josiah from [facility]. pt instructed that he must remain in the hospital
--- NOTE | 2018-04-21 15:13 | ED.RN ---
PT'S LEGAL GUARDIAN, BETTY BOLTON CONTACTED AND INFORMED THAT PT WAS BEING TRANSFERRED TO [facility]
--- OUTSIDE RECORDS SUMMARY | 2018-06-16 02:45 | XMS RPT_ITS ---
[...] SOURCE 03/17/2018 Active Essential (primary) NA Active [place] hypertension / Clinic Main I10(ICD-10) [facility] 10/07/2017 Active Schizoaffective NA Active [place] disorder, bipolar Clinic Main type / F25.0(ICD-10) [facility] PROCEDURES PROCEDURES No Procedure Records FoundRESULTS RESULTS 12 LEAD ELECTROCARDIOGRAM Observed: 04/26/2018 Status: F Source: JAZZ[place] 2:10 PM [facility] Cardiovascular Services [address] [place] [address] 12 Lead EKG 04/21/18 1144 MR#: [id number] Acct: [id number] Name: AGUSTIN ARROYO Rep #: [id number] : 1970 47 From: Naseem Block MD [...] 453 ms Unusual P axis and short AK, probable junctional tachycardia Abnormal ECG Confirmed by NASEEM BLOCK MD ([id number]), editor in chief newspaper JUYL MAHONEY ([id number]) on 04/26/2018 2:10:36 PM Referred By: SHAD Confirmed By:NASEEM BLOCK MD 04/26/18 1410 Date Naseem Block MD CC: Catrachito Cristina MD; Carlos Eduardo Mohan MD; Darío Lundy MD Signed EMERGENCY DEPARTMENT Observed: 04/20/2018 Status: F Source: [place] SUMMARY 11:12 PM [facility] Medical Records Department [address] [place] [address] Emergency Department Summary 04/20/18 1703 MR#: [id number] Acct: [id number] Name: AGUSTIN ARROYO Rep #: [id number] : 1970 47 From: Darío Lundy MD PCP: Catrachito Cristina MD Status: REG ER - ER Visit Summary Date of Service: 04/20/18 Chief Complaint: Aggressive behavior History of Present Illness: The patient is a [address] Maya and the counseling center. Staff from [facility] reports that that [...] took them today. Patient was hospitalized at [facility] and released April 12. He was here [...] Aggressive behavior. This note was generated with Manads [employer]ation software. It may contain incorrect words, spelling, [...] your Primary Care Provider. Call [facility] ([phone]) or report to the closest Emergency Room. Call 911 if necessary. 04/20/18 2312 <Electronically signed by Darío Lundy MD> Date Darío Lundy MD Cosigner Signature (If Indicated): Date CC: Catrachito Cristina MD URINE DRUG SCREEN Collected: 04/20/2018 Status: F Source: [place]ZZY (VISTA) 5:00 PM [facility] TYPE CODE TESTS RESULT OUT OF [...] Normal NEGATIVE Performed By: #### L505.5000 #### [facility] [place], [address] CBC W/DIFF, AUTOMATED Collected: 04/20/2018 Status: F Source: [place] 4:45 PM [facility] TYPE CODE TESTS RESULT OUT OF [...] Lymph 2.32 Performed By: #### L100.0100 #### [facility] [address] [facility] [place], [place], [id number] BASIC METABOLIC Collected: 04/20/2018 Status: F Source: [place]ZZY PROFILE (BMP) 4:45 PM [facility] TYPE CODE TESTS RESULT OUT OF [...] Normal 5 Performed By: #### L500.2500 #### [facility] [address] [facility] [place], [address] ALCOHOL, BLOOD Collected: 04/20/2018 Status: F Source: [place] (MEDICAL)-SERUM 4:45 PM [facility] TYPE CODE TESTS RESULT OUT OF [...] fatal coma Performed By: #### L501.9100 #### [facility] [address] [place], [address] VALPROIC ACID Collected: 04/20/2018 Status: F Source: JAZZY (BARBARAAK[place]ruzito) LEVEL 4:45 PM [facility] TYPE CODE TESTS RESULT OUT OF RANGE REFERENCE UNITS LAB L501.8100 50-100 ug/mL Normal VALPROIC ACID 51 Performed By: #### L501.8100 #### [facility] [address] [place], [address] LIVER PROFILE Collected: 04/20/2018 Status: F Source: [place]ZZ[place] 4:45 PM [facility] Order Comment: Order Date: 04/21/18 TYPE [...] BILI 0.14 Performed By: #### L500.3400 #### [facility] [address] [place], [address] EMERGENCY DEPARTMENT Observed: 04/19/2018 Status: F Source: [place]ZZ[place] SUMMARY 12:27 AM [facility] Medical Records Department [address] [place] [address] Emergency Department Summary 04/18/188 MR#: [id number] Acct: [id number] Name: AGUSTIN ARROYO Rep #: [id number] : 1970 47 From: Magy Sandoval MD PCP: Catrachito Cristina MD Status: DEP ER - ER Visit Summary Date of Service: 04/18/18 Chief Complaint: Headache History of Present Illness: The patient is a 47 M with history of schizophrenia, seizure disorder, and hypertension. He was seen last night for headache and given ibuprofen. Patient reportedly did not make it back to his [place] facility and states that his headache is returned. [...] He is encouraged to follow-up with a control analyst or a dentist to be checked for oral cancer and we discussed smoking cessation. Treatment Plan: [] Disposition: Discharge Impression: Cephalgia This note was generated with [employer] dictation software. It may contain incorrect words, [...] your Primary Care Provider. Call [facility] ([phone]) or report to the closest Emergency Room. Call 911 if necessary. 04/19/18 0027 <Electronically signed by Magy Sandoval MD> Date Magy Sandoval MD Cosigner Signature (If Indicated): Date CC: Catrachito Cristina MD DISCHARGE INSTRUCTION Observed: 04/18/2018 Status: F Source: [place] 8:50 PM [facility] Medical Records Department [address] [place] [address] Discharge Instruction 04/18/182048 MR#: [id number] Acct: [id number] Name: AGUSTIN ARROYO Rep #: [id number] : 1970 47 From: Magy Sandoval MD PCP: Catrachito Cristina MD Status: PRE ER ED Disposition - Plan for ED Patient: Disposition: Home or Assisted Living Chief Complaint: Headache Instructions: ED Cephalgia Unspecified Referrals: Catrachito Cristina MD [Primary Care Provider] - Additional Instructions: Follow-up with a dentist or a control analyst to be checked for oral cancer as discussed. What to do if you have Problems For any increased pain, shortness of breath, bleeding, nausea or vomiting, chest pain, or any unexpected problems, contact your Primary Care Provider. Call [employer] [facility] ([phone]) or report to the closest Emergency Room. Call 911 if necessary. 04/18/182049 <Electronically signed by Magy Sandoval MD> Date Magy Sandoval MD Cosigner Signature (If Indicated): Date CC: Catrachito Cristina MD EMERGENCY DEPARTMENT Observed: 04/18/2018 Status: F Source: [place] SUMMARY 7:04 AM [facility] Medical Records Department [address] [place] [address] Emergency Department Summary 04/18/184 MR#: [id number] Acct: [id number] Name: AGUSTIN ARROYO Rep #: [id number] : 1970 47 From: Christiano Quinones MD [...] treatment. He stated he lives at a [place] facility and needs a prescription to take any [...] [] Headache This note was generated with [employer] dictation software. It may contain incorrect words, [...] your Primary Care Provider. Call [facility] ([phone]) or report to the closest Emergency Room. Call 911 if necessary. 04/18/18 0704 <Electronically signed by Christiano Quinones MD> Date Christiano Quinones MD Cosigner Signature (If Indicated): Date __ CC: Catrachito Cristina MD DISCHARGE INSTRUCTION Observed: 04/18/2018 Status: F Source: [place] 7:04 AM [facility] Medical Records Department [address] [place] [address] Discharge Instruction 04/18/18 0205 MR#: [id number] Acct: [id number] Name: AGUSTIN ARROYO Rep #: [id number] : 1970 47 From: Christiano Quinones MD [...] your Primary Care Provider. Call [facility] ([phone]) or report to the closest Emergency Room. Call 911 if necessary. 04/18/18 0704 <Electronically signed by Christiano Quinones MD> Date Christiano Quinones MD Cosigner Signature (If Indicated): Date CC: Catrachito Cristina MD 12 LEAD ELECTROCARDIOGRAM Observed: 03/30/2018 Status: F Source: [place] 1:38 PM [facility] Cardiovascular Services [address] [place] [address] 12 Lead EKG 03/26/18 2258 MR#: [id number] Acct: [id number] Name: AGUSTIN ARROYO Rep #: [id number] : 1970 47 From: Naseem Block MD [...] ECG Confirmed by NASEEM BLOCK MD ([id number]), editor in chief newspaper JULY MAHONEY ([id number]) on 03/30/2018 1:38:21 PM Referred By: OUT DOCTOR Confirmed By:NASEEM BLOCK MD 03/30/18 1338 Date Naseem Block MD CC: Patty Turner MD; Catrachito Cristina MD Signed EMERGENCY DEPARTMENT Observed: 03/26/2018 Status: F Source: [place] SUMMARY 11:43 PM [facility] Medical Records Department [address] [place] [address] Emergency Department Summary 03/26/18 1552 MR#: [id number] Acct: [id number] Name: AGUSTIN ARROYO Rep #: [id number] : 1970 47 From: Patty Turner MD [...] for the past month. He is from [facility]. He has not been able to contact [...] of schizophrenia This note was generated with [employer] dictation software. It may contain incorrect words, spelling, and punctuation that were not noted in review of the chart prior to signing ED Disposition - Plan for ED Patient: Chief Complaint: Mental Status Change Referrals: [facility] Doctor,Out of [Primary Care Provider] - What to do if you have Problems For any increased pain, shortness of breath, bleeding, nausea or vomiting, chest pain, or any unexpected problems, contact your Primary Care Provider. Call [facility] ([phone]) or report to the closest Emergency Room. Call 911 if necessary. 03/26/18 4549 <Electronically signed by Patty Turner MD> Date Patty Turner MD Cosigner Signature (If Indicated): Date CC: Catrachito Cristina MD CBC W/DIFF, AUTOMATED Collected: 03/26/2018 Status: F Source: [place] 4:20 PM [facility] TYPE CODE TESTS RESULT OUT OF [...] Lymph 1.57 Performed By: #### L100.0100 #### [facility] [address] [place], [address] BASIC METABOLIC Collected: 03/26/2018 Status: F Source: [place] PROFILE ([facility]) 4:20 PM [facility] TYPE CODE TESTS RESULT OUT OF [...] Normal 5 Performed By: #### L500.2500 #### [facility] [address] [facility] [place], [place], [address] ALCOHOL, BLOOD Collected: 03/26/2018 Status: F Source: [place] (MEDICAL)-SERUM 4:20 PM [facility] TYPE CODE TESTS RESULT OUT OF [...] fatal coma Performed By: #### L501.9100 #### [facility] [address] [facility] [place], [place], [address] VALPROIC ACID Collected: 03/26/2018 Status: F Source: [place]ZZ[place] ([place]PAKEN[place]) LEVEL 4:20 PM [facility] TYPE CODE TESTS RESULT OUT OF RANGE REFERENCE UNITS LAB L501.8100 50-100 ug/mL Normal VALPROIC ACID 74 Performed By: #### L501.8100 #### [facility] [address] [facility], [place], [address] URINE DRUG SCREEN Collected: 03/26/2018 Status: F Source: [place] (VISTA) 4:10 PM [facility] TYPE CODE TESTS RESULT OUT OF [...] Normal NEGATIVE Performed By: #### L505.5000 #### [facility] [address] [place] [address] [address]. [place], [place], [address] LIVER PROFILE Collected: 03/26/2018 Status: F Source: [place] 4:10 PM [facility] TYPE CODE TESTS RESULT OUT OF [...] BILI 0.06 Performed By: #### L500.3400 #### [facility] [address] [place], [place], [address] URINALYSIS, ROUTINE Collected: 03/26/2018 Status: F Source: [place]ZZ[place] (DIPSTICK) 4:10 PM [facility] Order Comment: Order Date: 03/26/18 How [...] ESTERASE 25 Performed By: #### L400.2010 #### [facility] [address] [place], [address] CBC AND DIFFERENTIAL Collected: 03/23/2018 Status: F Source: [place] 11:01 AM [facility] REPOSITORY TYPE CODE TESTS RESULT OUT [...] k/uL Abs Lymph 2.46 LAB AMONO % [place]% 8.3 LAB AAMONO <0.87 k/uL Abs [place] 0.57 LAB AEOS % Eosin% 2.0 LAB AAEOS <0.46 k/uL Abs Eosin 0.14 LAB ABASO % Baso% 0.3 LAB AABASO <0.11 k/uL Abs Baso <0.03 LAB AUNRBC 0 /100 WBC NRBCs 0.0 LAB ABNRBC <0.01 k/uL Absolute nRBC <0.01 LAB DTYP DTYPE Auto Diff Performed By: #### CBCDIF #### [facility] [address] [place] [id number] COMP METABOLIC PANEL Collected: 03/17/2018 Status: F Source: [place] 11:10 AM [facility] REPOSITORY TYPE CODE TESTS RESULT OUT OF REFERENCE UNITS RANGE LAB TP 6.3-8.0 g/dL Protein, Total 7.6 LAB ALB 3.9-4.9 g/dL Albumin 4.3 LAB CA 8.5-10.2 mg/dL Calcium, Total 9.5 LAB TBIL 0.2-1.3 mg/dL Bilirubin, Total 0.5 LAB ALKP 38-113 U/L Alkaline Phosphatase 40 LAB AST 14-40 U/L AST 21 LAB GLU 74-99 mg/dL Glucose 81 Result Comment: The [place] Diabetes Association (ADA) provides guidance for cutoff [...] Standards of Medical Care in Diabetes 2016, [place] Diabetes Association. Diabetes Care. 2016.39(Suppl 1). LAB [...] GFR. Performed By: #### CMP, LIPB #### [facility] [address] [place] [id number] LIPID PANEL, BASIC Collected: 03/17/2018 Status: F Source: [place] 11:10 AM [facility] REPOSITORY TYPE CODE TESTS RESULT OUT [...] Desk Reference: National Heart, Lung, and Blood [place]. National Institutes of Health. 2001: NIH Publication No. 01-3305. 2. An International Atherosclerosis Society position paper: global recommendations for the management of dyslipidemia: executive summary, Atherosclerosis. 2014: 232(2):410-413. Performed By: #### CMP, LIPB #### [facility] [address] [place], [place] [address] CBC AND DIFFERENTIAL Collected: 03/17/2018 Status: F Source: [place] 11:10 AM [facility]IN[facility] REFERENCE REPOSITORY TYPE CODE [...] Abs Lymph 2.09 LAB AMONO(LOIN % C) [place]% 8.6 LAB AAMONO(DEBBIE <0.87 k/uL NC) Abs [place] 0.48 LAB AEOS(LOINC % ) Eosin% 3.2 LAB AAEOS(LOIN <0.46 k/uL C) Abs Eosin 0.18 LAB ABASO(LOIN % C) Baso% 0.2 LAB AABASO(DEBBIE <0.11 k/uL NC) Abs Baso <0.03 LAB AUNRBC(DEBBIE 0 /100 WBC NC) NRBCs 0.0 LAB ABNRBC(DEBBIE <0.01 k/uL NC) Absolute nRBC <0.01 LAB DTYP(LOINC ) DTYPE ADIFF Performed By: #### CBCDIF #### [facility] Routine Lab [address] [place], [place] [address] CNOV Observed: 03/09/2018 Status: COMPLETED Source: [place] 4:00 PM [facility] REPOSITORY Office Visit (FAMPWS) AGUSTIN ARROYO ([id number]) 1970 M Date Time Provider Department 03/09/18 [...] by caregiver Myesha. Patient was admitted to [facility] in [place] from November until 02/25 for behavioral issues related to his schizoaffective disorder. Discharged back to [facility] on Depakote, clozaril, Haldol, and Cogentin [...] Laura Cristina MD Referring Provider: JORGE OLIVIER [[id number]] Allergies As of Date: 03/09/2018 Noted Allergy [...] Rfl: LIPID PANEL BASIC [SQLIPB] Order #: [id number] FUTURE COMP METABOLIC PANEL [SQCMP] Order #: [id number] FUTURE amLODIPine (NORVASC) 10 mg tabletTake 1 [...] 03/10/18 PROGRESS Observed: 03/09/2018 Status: COMPLETED Source: [place] 3:31 PM [facility] REPOSITORY HNO ID: [id number] Author: Laura Huntley) Jonnie Service: (none) Author Type: Physician Type: Progress Notes Filed: 03/10/2018 10:20 AM Note Text: Chief Complaint Patient presents with: Medication Follow-up HPI Agustin Arroyo is a 47 year old male who presents here today for medication follow up. Accompanied today by caregiver Myesha. Patient was admitted to [facility] in [place] from November until 02/25 for behavioral issues related to his schizoaffective disorder. Discharged back to [facility] on Depakote, clozaril, Haldol, and Cogentin for schizoaffective disorder. Added on amlodipine 7.5 mg daily for HTN as well. Adjustments made to his Depakote, haldol, and Cogentin. Schizoaffective symptoms appear much improved per patient and caregiver. No longer hearing voices, denies HI/SI. Able to carry on a conversation today without asking about getting a girlfriend. Has been following up with Dr. Oliiver as recommended on discharge and has scheduled [...] AND DIFFERENTIAL Collected: 03/09/2018 Status: F Source: [place] 3:07 PM [facility] REPOSITORY TYPE CODE TESTS RESULT OUT [...] k/uL Abs Lymph 2.53 LAB AMONO % [place]% 7.5 LAB AAMONO <0.87 k/uL Abs [place] 0.45 LAB AEOS % Eosin% 3.2 LAB AAEOS <0.46 k/uL Abs Eosin 0.19 LAB ABASO % Baso% 0.3 LAB AABASO <0.11 k/uL Abs Baso <0.03 LAB AUNRBC 0 /100 WBC NRBCs 0.0 LAB ABNRBC <0.01 k/uL Absolute nRBC <0.01 LAB DTYP DTYPE Auto Diff Performed By: #### CBCDIF #### [facility] [address] [place], [place] [address] CBC AND DIFFERENTIAL Collected: 03/03/2018 Status: F Source: [place] 1:35 PM [facility] REPOSITORY TYPE [...] k/uL Abs Lymph 2.58 LAB AMONO % [place]% 9.4 LAB AAMONO <0.87 k/uL Abs [place] 0.73 LAB AEOS % Eosin% 2.6 LAB AAEOS <0.46 k/uL Abs Eosin 0.20 LAB ABASO % Baso% 0.3 LAB AABASO <0.11 k/uL Abs Baso <0.03 LAB AUNRBC 0 /100 WBC NRBCs 0.0 LAB ABNRBC <0.01 k/uL Absolute nRBC <0.01 LAB DTYP DTYPE Auto Diff Performed By: #### CBCDIF #### [facility] [address] [place], [place] [address] EMERGENCY DEPARTMENT Observed: 12/12/2017 Status: F Source: [place] SUMMARY 8:22 AM [facility] Medical Records Department [address] [place] [address] Emergency Department Summary 12/08/17 1115 MR#: [id number] Acct: [id number] Name: AGUSTIN ARROYO Rep #: [id number] : 1970 47 From: Carlos Eduardo Jade [...] he is here. I attempted to use [facility]undown App[facility]. However I can only basically see a few notes and none of them are psychiatric in nature. I can see from his primary care physician notes that he has recently moved to [place]. 3 months ago was hospitalized at [facility]. Apparently he was receiving his medications off of prescriptions that were written there and some from his primary care doctor here in [place]. He was supposed to be seen next week by psychiatry at [facility]. Caregiver states he has not had his Haldol shot for over a month. He also reports being out of his clozapine. Reportedly the patient has had violence in the past due to paranoid schizophrenia. It is reported to me that [place] here in town where he is living [...] paranoid schizophrenia This note was generated with [employer] software. It may contain incorrect words, spelling, [...] your Primary Care Provider. Call [facility] ([phone]) or report to the closest Emergency Room. Call 911 if necessary. 12/12/17821 <Electronically signed by Carlos Eduardo Jade DO> Date Carlos Eduardo Jade DO Cosigner Signature (If Indicated): Date CC: Catrachito Arriaga MD; Catrachito Cristina MD URINE DRUG SCREEN Collected: 12/08/2017 Status: F Source: [place]ZZ[place] (VISTA) 1:00 PM [facility] TYPE CODE TESTS RESULT OUT OF [...] Normal NEGATIVE Performed By: #### L505.5000 #### [facility] [address] [place], [address] URINALYSIS, COMPLETE Collected: 12/08/2017 Status: F Source: [place] 1:00 PM [facility] Order Comment: How was Urine Obtained? [...] URINE 2+ Performed By: #### L400.0001 #### [facility] [address] [place], [address] CBC W/DIFF, AUTOMATED Collected: 12/08/2017 Status: F Source: [place] 11:44 AM [facility] TYPE CODE TESTS RESULT OUT OF [...] Lymph 1.96 Performed By: #### L100.0100 #### [facility] [address] [place], [address] COMPREHENSIVE METABOLIC Collected: 12/08/2017 Status: F Source: [place]ZZ[place] JIM[place] 11:44 AM [facility] TYPE CODE TESTS RESULT OUT OF [...] GAP 8 Performed By: #### L500.4050 #### [facility] [address] [place], [address] ALCOHOL, BLOOD Collected: 12/08/2017 Status: F Source: [place] (MEDICAL)-SERUM 11:44 AM [facility] TYPE CODE TESTS RESULT OUT OF [...] fatal coma Performed By: #### L501.9100 #### [facility] [address] [facility] [place], [address] VALPROIC ACID Collected: 12/08/2017 Status: F Source: [place] (DE[place]KEN[place]) LEVEL 11:44 AM [facility] TYPE CODE TESTS RESULT OUT OF REFERENCE UNITS RANGE LAB L501.8100 50-100 ug/mL Low VALPROIC ACID 12 Performed By: #### L501.8100 #### [facility] [address] [facility] [place], [address] CNCO Observed: 11/22/2017 Status: COMPLETED Source: [place] 12:00 AM [facility] REPOSITORY Letter Text Laura Cristina M.D. [address] [place], [place] [address] Agustin Arroyo [address] [facility] [address] 11/22/2017 Dear Mr. Arroyo, I have received the results of your recent tests. The Complete Blood Count were either normal or within the acceptable range. We can discuss this at your next visit. Please do not hesitate to contact me with any questions. Sincerely, Laura Cristina M.D. electronically signed to expedite mailing CBC AND DIFFERENTIAL Collected: 11/19/2017 Status: F Source: [place] 9:45 AM [facility] REPOSITORY TYPE CODE TESTS RESULT OUT [...] k/uL Abs Lymph 1.89 LAB AMONO % [place]% 7.7 LAB AAMONO <0.87 k/uL Abs [place] 0.44 LAB AEOS % Eosin% 3.5 LAB AAEOS <0.46 k/uL Abs Eosin 0.20 LAB ABASO % Baso% 0.2 LAB AABASO <0.11 k/uL Abs Baso <0.03 LAB AUNRBC 0 /100 WBC NRBCs 0.0 LAB ABNRBC <0.01 k/uL Absolute nRBC <0.01 LAB DTYP DTYPE Auto Diff Performed By: #### CBCDIF #### [facility] [address] [place], [place] [address] CBC Collected: 10/12/2017 Status: F Source: [place] 9:35 AM [facility] REPOSITORY TYPE CODE TESTS RESULT OUT [...] Performed By: #### CBC, CMP, VPA #### [facility] [address] [place], [place] [address] COMP METABOLIC PANEL Collected: 10/12/2017 Status: F Source: [place] 9:35 AM [facility] REPOSITORY TYPE CODE TESTS RESULT OUT OF REFERENCE UNITS RANGE LAB TP 6.3-8.0 g/dL Protein, Total 7.7 LAB ALB 3.9-4.9 g/dL Albumin 3.9 LAB CA 8.5-10.2 mg/dL Calcium, Total 9.0 LAB TBIL 0.2-1.3 mg/dL Bilirubin, Total 0.4 LAB ALKP 36-108 U/L Alkaline Phosphatase 39 LAB AST 14-40 U/L AST 20 LAB GLU 74-99 mg/dL Glucose High 108 Result Comment: The [place] Diabetes Association (ADA) provides guidance for cutoff [...] Standards of Medical Care in Diabetes 2016, [place] Diabetes Association. Diabetes Care. 2016.39(Suppl 1). LAB [...] Performed By: #### CBC, CMP, VPA #### [facility] [address] [place], [place] [address] VALPROIC ACID Collected: 10/12/2017 Status: F Source: [place] 9:35 AM [facility] REPOSITORY TYPE CODE TESTS RESULT OUT OF REFERENCE UNITS RANGE LAB VPA 50-100 ug/mL Valproic Acid 88.4 Result Comment: Reference ranges and high/low indicator flags are provided as general guidelines only. The treating physician must determine appropriate target levels/dosing based on the specific clinical situation. Performed By: #### CBC, CMP, VPA #### [facility] [address] [place], [place] [address] PROGRESS Observed: 10/07/2017 Status: COMPLETED Source: [place] 5:10 PM [facility] REPOSITORY HNO ID: [id number] Author: Laura Huntley) Jonnie Service: (none) Author Type: Physician Type: Progress Notes Filed: 10/11/2017 7:49 AM Note Text: Chief Complaint Patient presents with: Rx Refills HPI Agustin Arroyo is a 47 year old male who presents here today for request for rx refills. Accompanied by safety lamp keeper Myesha from [facility] where patient moved in today from the hospital. Patient was admitted to [facility] about 3 months ago for schizoaffective disorder, [...] with more than 50% of the total loqc-ji-iwhl time of the visit in counseling / coordination of care. Laura Cristina MD CNOV Observed: 10/07/2017 Status: COMPLETED Source: [place] 4:40 PM [facility] REPOSITORY Office Visit (FAMPWS) AGUSTIN ARROYO ([id number]) 1970 M Date Time Provider Department 10/07/17 [...] for request for rx refills. Accompanied by safety lamp keeper Myesha from [facility] where patient moved in today from the hospital. Patient was admitted to [facility] about 3 months ago for schizoaffective disorder, [...] with more than 50% of the total jstf-am-reql time of the visit in counseling / [...] tabletRfl: 1 VALPROIC A/DEPAKENE [SQVPA] Order #: [id number] FUTURE CBC [SQCBC] Order #: [id number] FUTURE COMP METABOLIC PANEL [SQCMP] Order #: [id number] FUTURE Prescriptions as of 10/07/2017 Sig: CLOZAPINE [...] SCREEN, STAT Collected: 06/16/2017 Status: F Source: [facility] () 10:30 AM [facility] Order Comment: Testing performed at [facility], [address] [place] [address] Host Order: [id number] TYPE CODE TESTS RESULT OUT OF REFERENCE [...] W/AUTO DIFF Collected: 06/16/2017 Status: F Source: [facility] 9:45 AM [facility] REPOSITORY Order Comment: Testing performed at [facility], [address] [place] [address] Host Order: [id number] TYPE CODE TESTS RESULT OUT OF REFERENCE [...] ALCOHOL BLOOD Collected: 06/16/2017 Status: F Source: [facility] 9:45 AM [facility] REPOSITORY Order Comment: Testing performed at [facility], [address] [place] [address] Host Order: [id number] TYPE CODE TESTS RESULT OUT OF REFERENCE UNITS RANGE LAB DRAWSITE( LOINC) Draw Site Right Antecubital LAB SkinPrep( LOINC) Skin Prep Betadine Used LAB PHLEB(DEBBIE [place]) [place] Demonstrator Name [facility] LAB ALCO-B <10 mg/dL Alcohol, <10 Blood [...] Source: COMMUNITY PROFILE 9:45 AM [facility] REPOSITORY Order Comment: Testing performed at [facility], [address] [place] [address] Host Order: [id number] TYPE CODE TESTS RESULT OUT OF REFERENCE [...] F Source: COMMUNITY FILTRATION RATE 9:45 AM [facility] REPOSITORY Order Comment: [place] Order: [id number] The calculated GFR uses the (IDMS)-traceable creatinine MDRD equation and is reported in mL/min/1.73 square meters. This formula is not recommended for use with individuals with unstable creatinine concentrations, extremes in muscle mass and/or body size, or alternative diets and may not be suitable for all patient populations. Testing performed at [facility], [address] [place] [address] TYPE CODE TESTS RESULT OUT OF REFERENCE UNITS RANGE LAB EAGFR >60 Est. >60 Adult GFR Result Comment: The reported eGFR is based on a non- patient, for Americans multiply the result by 1.212. THYROID-STIMULATING HORMONE Collected: Status: F Source: [facility] 06/16/2017 9:45 AM [facility] Order Comment: Testing performed at [facility], [address] [place] [address] Host Order: [id number] TYPE CODE TESTS RESULT OUT OF RANGE REFERENCE UNITS LAB TSH 0.465-4.680 uIU/mL TSH 1.350 ALLERGIES ALLERGIES DATE TYPE / CODE NAME / CODE REACTION SEVERITY SOURCE 04/20/2018 Drug Penicillins/F0010 Angioedema Unknown Jazzy Allergy/416 63612(RXNORM) [facility] 060100([facility] ED [facility]) Repository 10/07/2017 DRUG PENICILLIN HIVES [facility] INGREDI/[address] 232210(SNOM Repository ED CT) Drug penicillin/92983( Swelling of lips Severe Community Allergy/416 RXNORM) (severity Hospitals and 001176([facility] ED [facility]) (qualifier Repository value) ENCOUNTERS ENCOUNTERS ADMIT/DISCHARGE ACCOUNT ADMITTING ENCOUNTER LOCATION SOURCE NUMBER CLASS 04/20/2018/04/21/20 [id number] Emergency [address] ing:ED Repository 04/18/2018/04/18/20 [id number] Emergency [address] ing:ED Repository 04/18/2018/04/18/20 [id number] Emergency [address] ing:ED Repository 03/26/2018/03/27/20 [id number] Emergency [address] ing:ED Repository 03/17/2018/03/17/20 [id number] Ambulatory [address] Repository 03/09/2018/03/10/20 [id number] Ambulatory [address] Repository 12/08/2017/12/10/19 [id number] Emergency Pearce Pearce [facility] ing:ED Repository 11/19/2017/11/20/19 [id number] Ambulatory [address] Repository 10/12/2017/10/13/19 [id number] Ambulatory [address] Repository 10/07/2017/10/12/19 [id number] Ambulatory [address] Repository 06/16/2017/06/16/19 [id number] ZWAYER, Emergency ERBuilding:B_ Community [address] ERRoom: Hospitals and DRJ7Wiu: [facility] Repository PAYERS PAYERS ENCOUNTER GUARANTOR PAYER SUBSCRIBER SOURCE 04/20/2018 AGUSTIN D Primary AGUSTIN D Jazzy [id number] Insurance:MEDICARE FOBBSDOB: [facility] [id number] [address]Qgy: Number: Repository [id number] () Date:2018-04-20 04/20/2018 Secondary AGUSTIN D Jazzy Insurance:MEDICAIDPol FOBBSDOB: [facility] ic Number: [id number] [id number] Repository Date:2018-04-20 04/20/2018 Tertiary NOT GIVENUNK Jazzy Insurance:SELF PAY [facility] Number: Effective Repository Date:2018-04-20 04/18/2018 AGUSTIN D Primary AGUSTIN D Pearce [id number] Insurance:MEDICARE FOBBSDOB: [facility] A [facility] [id number] [facility] [place] [address]Emf: Number: Repository [id number] () Date:2018-04-18 04/18/2018 Secondary AGUSTIN D Pearce Insurance:MEDICAIDPol FOBBSDOB: [facility] ic Number: [id number] [facility] [id number] Repository Date:2018-04-18 04/18/2018 Tertiary NOT GIVENUNK Pearce Insurance:SELF PAY [facility] Number: Effective Repository Date:2018-04-18 04/18/2018 AGUSTIN D Primary AGUSTIN D Jazzy [id number] Insurance:MEDICARE FOBBSDOB: [facility] A [facility] [id number] [address]Aip: Number: Repository [id number] (HP) Date:2018-04-18 04/18/2018 Secondary AGUSTIN D Jazzy Insurance:MEDICAIDPol FOBBSDOB: [facility] icy Number: [id number] Hospital [id number] Repository Date:2018-04-18 04/18/2018 Tertiary NOT GIVENUNK Jazzy Insurance:SELF PAY [facility] Number: Effective Repository Date:2018-04-18 03/26/2018 AGUSTIN D Primary AGUSTIN D Pearce [id number] Insurance:MEDICARE FOBBSDOB: [facility] PART A [facility] [id number] [address]Rlo: Number: Repository [id number] () Date:2018-03-26 03/26/2018 Secondary AGUSTIN D Pearce Insurance:MEDICAIDPol FOBBSDOB: [facility] icy Number: [id number] Hospital [id number] Repository Date:2018-03-26 03/26/2018 Tertiary NOT GIVENUNK Jazzy Insurance:SELF PAY [facility] Number: Effective Repository Date:2018-03-26 12/08/2017 AGUSTIN D Primary AGUSTIN D Jazzy [id number] Insurance:MEDICARE FOBBSDOB: [facility] PART A [facility] [id number] Repository [id number]: [phone] [id number] [phone] () Date:2017-12-08 12/08/2017 Secondary AGUSTIN D Jazzy Insurance:MEDICAIDPol FOBBSDOB: [facility] icy Number: [id number] Hospital [id number] Repository Date:2017-12-08 12/08/2017 Tertiary NOT GIVENUNK Pearce Insurance:SELF PAY [facility] Number: Effective Repository Date:2017-12-08 06/16/2017 Primary AGUSTIN FOBBSDOB: Community Insurance:MEDICAREPol [id number] Hospitals and icy Number: [facility] [id number] [place], [place] Repository Date:0479-55-41[address] [address] [id number] [id number]~[address]UH: 06/16/2017 Secondary AGUSTIN LIYAHOB: Community Insurance:100 [id number] [facility] and MEDICAIDPolicy [facility] Number: [place], [place] Repository [id number] Date:2511-05-75[address], [place] [address]~[address]WP:
== END 2018-04-21 16:05 ==
LOC: ED 16:42
PROVIDERS: Emergency Medicine; Emergency Provider Emergency Medicine; Family Provider Family Medicine; PCP Family Medicine
DX: F25.9 Schizoaffective disorder, unspecified (principal); F91.8 Other conduct disorders; I10 Essential (primary) hypertension; F32.9 Major depressive disorder, single episode, unspecified; Z72.0 Tobacco use; Z79.899 Other long term (current) drug therapy
CPT/HCPCS: 80048; 80076; 80164; 80307; 80320; 85025; 93005; 99285; G0480

== ENCOUNTER → 2021-07-15 | Outpatient (REF) | payer SELFPAY | END | disposition home or self-care (01) | LOC: OLS.AHA 03:53 | PROVIDERS: PCP Family Medicine; Visit Provider Family Medicine | DX: E72.20 Disorder of urea cycle metabolism, unspecified (principal); Z79.899 Other long term (current) drug therapy | CPT/HCPCS: 82140 ==

== ENCOUNTER → 2021-08-12 | Outpatient (REF) | payer SELFPAY | END | disposition home or self-care (01) | LOC: OLS.AHA 03:50 | PROVIDERS: PCP Family Medicine; Visit Provider Family Medicine | DX: E78.5 Hyperlipidemia, unspecified (principal); E72.20 Disorder of urea cycle metabolism, unspecified | CPT/HCPCS: 82140 ==

== ENCOUNTER → 2021-11-06 | Outpatient (REF) | payer SELFPAY | END | disposition home or self-care (01) | LOC: OLS.AHA 04:13 | PROVIDERS: PCP Family Medicine; Referring Provider Family Medicine; Visit Provider Family Medicine | DX: Z51.81 Encounter for therapeutic drug level monitoring (principal) | CPT/HCPCS: 82140 ==

== ENCOUNTER → 2021-11-21 | Outpatient (REF) | payer SELFPAY | END | disposition home or self-care (01) | LOC: OLS.AHA 10:05 | PROVIDERS: PCP Family Medicine; Visit Provider Family Medicine | DX: F25.0 Schizoaffective disorder, bipolar type (principal) | CPT/HCPCS: 82140 ==